=== PATIENT | male | born 1960 | race Caucasian/White ===

== ENCOUNTER 2016-09-05 11:25 | Inpatient (IN) | payer OTHER ==
[2016-09-05] VITALS (12 sets, daily range): BP systolic 100–125; BP diastolic 76–87; PULSE 70–151; RESP 16–22; O2SAT 90–98
[~2016-09-05] VITALS: Ht 182.9 cm; Wt 104.7 kg
--- NOTE | 2016-09-05 11:33 | ED.REPORT ---
HPI-General Illness Date of Service Sep 05, 2016 ED Provider: Doc,Ed MD The patient is a 56 year old male who was brought to the emergency department by EMS from urgent care. When he went to urgent care he was found to be in atrial fibrillation with a rate in the 170s-180s. He was given 324 mg aspirin and 25 IVP Cardizem. The patient went to urgent care this morning for 1 month of increased shortness of breath and fluid retention. His symptoms have worsened since onset. His shortness of breath is exacerbated with exertion. At this point he is only able to walk about 50 feet which is abnormal. He has also noticed increased fatigue, generalized weakness, extremity swelling and redness , and abdominal redness. He does not take any medication regularly. He does not smoke tobacco and quit drinking alcohol 3 weeks ago after his symptoms began. He denies chest pain or itching. He denies history of eczema. He does mention history of a rash at one point several years ago that he was placed on antibiotics for. Nursing Notes Stated Complaint: SOB Chief Complaint: Dysrhythmia/Cardiac Nursing Notes Reviewed: Yes Allergies: Coded Allergies: No Known Allergies (Unverified , 09/05/16) General Time Seen by MD: 11:33 Chief Complaint Other (shortness of breath ) Hx Obtained From: Patient, EMS Arrived By: Ambulance Sudden in Onset?: No Onset Occurred: More than a week ago... (1 month) Symptom Duration: Since onset Severity: Current: No pain currently Severity: Maximum: No pain Recent Healthcare: No recent hospitalization, Recent doctor visit Similar Sx Previous: No Past Medical History Past Medical History Denies Past Surgical History None Family History Noncontributory Smoking History Never Smoker Social History He was drinking a fair amount of alcohol and quit about 3 weeks ago. Other Social History: Local resident Ambulatory Status Independent Review of Systems Full Review of Systems Constitutional: Reports: Fatigue, Weakness - generalized Respiratory: Reports: Dyspnea on exertion, Shortness of breath Cardiovascular: Reports: Dyspnea on exertion, Edema, Denies: Chest pain Musculoskeletal: Reports: Extremity swelling Skin: Reports Rash (to lower extremities and abdomen), Denies Itching Complete sys rev & neg: except as marked. Physical Exam Vital Signs Vital Signs Date Time Temp Pulse Resp B/P Pulse Ox O2 Delivery O2 Flow Rate FiO2 09/05/16 12:26 121 123/76 92 Nasal Cannula 2 09/05/16 12:04 123 20 103/82 91 Nasal Cannula 2 09/05/16 11:57 118 22 90 Room Air 09/05/16 11:54 122 20 122/87 92 Room Air 09/05/16 11:45 92 Room Air 09/05/16 11:28 36.5 151 22 125/79 94 Nasal Cannula 2 Initial VS: Reviewed ENT: Mucous membranes moist, Conjunctiva normal, No scleral icterus Abdomen / GI: Soft, Non-tender, No guarding, No rebound, No distention Lymphatic: No lymphadenopathy Extremities: Vascular intact, Neuro intact Neurologic: Alert, Oriented, Nonfocal Psychiatric: Mood/affect normal, Behavior normal, Normal thought content General/Constitutional: Awake, Alert Anasarca up to mid abdomen Head / Eyes: Atraumatic, Normocephalic, PERRL, EOMI, No scleral icterus, Conjunctiva NL Neck: Supple, Full range of motion Neck Vascular: Positive: JVD moderate Respiratory / Chest: No respiratory distress Diminished Breath Sounds: Positive: Decreased L (in the lung base) Cardiovascular: Regular rhythm, Heart sounds NL, No murmurs, No rubs, Cap refill not delayed Heart Rate / Rhythm: Positive: Tachycardia Skin: Warm, Dry Color / Condition: Negative: Jaundice present Rash / Lesion Notes: Excoriated rash to the anterior shins bilaterally and the anterior lower abdomen. There is no warmth, tenderness, induration or fluctuance. It looks more consistent with a contact dermatitis. Interpretation & Diagnostics Lab Results Interpretation Result Diagram: 09/05/16 1148 09/05/16 1148 Test 09/05/16 11:45 09/05/16 11:48 Prothrombin Time 15.8sec (8.1-12.5) Prothromb Time International Ratio 1.47ratio Activated Partial Thromboplast Time 28.7sec (22.8-33.0) Pro-B-Type Natriuretic Peptide 6706pg/mL (0-210) White Blood Count 6.5th/mm3 (3.8-10.1) Red Blood Count 5.81mil/mm3 (4.40-5.80) Hemoglobin 16.9g/dL (13.8-17.2) Hematocrit 50.7% (41.0-50.0) Mean Corpuscular Volume 87.3fL (81-100) Mean Corpuscular Hemoglobin 29.1pg (27.0-35.0) Mean Corpuscular Hemoglobin Concent 33.3% (32.0-37.0) Red Cell Distribution Width 13.4% (12.3-15.4) Platelet Count 260bil/L (150-400) Neutrophils (%) (Auto) 50.3% (40-74) Lymphocytes (%) (Auto) 30.2% (14-46) Monocytes (%) (Auto) 13.1% (4-12) Eosinophils (%) (Auto) 5.9% (0-5) Basophils (%) (Auto) 0.3% (0-3) Sodium Level 132mEq/L (134-144) Potassium Level 4.4mEq/L (3.5-5.2) Chloride Level 95mEq/L (97-108) Carbon Dioxide Level 16mmol/L (18-29) Blood Urea Nitrogen 23mg/dL (6-24) Creatinine 1.19mg/dL (0.76-1.27) Estimat Glomerular Filtration Rate 67mL/min (>59) Glucose Level 136mg/dL (60-99) Calcium Level 9.5mg/dL (8.5-10.1) Magnesium Level 1.6mg/dL (1.6-2.6) Total Bilirubin 2.3mg/dL (0.0-1.2) Aspartate Amino Transf (AST/SGOT) 26U/L (0-50) Alanine Aminotransferase (ALT/SGPT) 23U/L (0-44) Alkaline Phosphatase 96U/L (25-150) Troponin T 0.010ug/L (0.0-0.011) Total Protein 7.3g/dL (6.4-8.4) Albumin 3.8g/dL (3.4-5.0) ECG Interpretation ECG Interpretation: Atrial fibrillation with RVR No acute ischemic changes Time: 11:38 Interpreted by: ED physician X-Ray Chest Interpretation Chest Xray Interpretation: IMPRESSION: Left basilar atelectasis versus pneumonia with small left pleural effusion. Continued plain film surveillance is recommended to ensure resolution, and to exclude underlying or central malignancy. Dictated by: Fariha Wade M.D. on 09/05/2016 at 11:50 Interpretation / Wet Read by: Interpret - Radiologist Re-Eval/Medical Decision Med Decision/Clinical Course A. fib with RVR and likely new onset congestive heart failure with anasarca. Question if there is either liver congestion causing elevated bilirubin or alcoholic cirrhosis causing elevated bilirubin and mild elevation in INR. Patient has no infectious symptoms, will be placed on heparin and a Cardizem drip after receiving 2 IV boluses of Cardizem. Also patient is given 40 of IV Lasix. Source of Hx: Old records, EMS Time of Eval: 11:44 Re-Evaluation/Progress Note: Discussed plan with the patient for probable admission. Time of Eval: 11:52 Re-Evaluation/Progress Note: Rechecked the patient. Time of Eval: 12:05 Re-Evaluation/Progress Note: Rechecked the patient. He denies any URI symptoms. Consultation : Referral / Consult Name: Refugio Cueto MD Consulted With: Hospitalist Requested Call at: 12:18 Call Returned at: 12:51 Strategy Specialist: Will see patient, Agrees with eval, Agrees with plan, Accepts admit Counseled Regarding: Diagnosis, Lab results, Need for admission Discharge & Departure Primary Impression: CHF (congestive heart failure) Congestive heart failure type: unspecified congestive heart failure type Congestive heart failure chronicity: unspecified congestive heart failure chronicity Qualified Code: I50.9 - Heart failure, unspecified Additional Impressions: Atrial fibrillation with rapid ventricular response Anasarca Hypoxia Disposition: ADMITTED TO HOSPITAL Discharge Condition All VS Reviewed: Yes Condition: Stable Crit Care Except Billable Proc Time Spent: 75-104 minutes Services Performed: Patient management by me, Time spent at bedside, Reviewing test results Critical Care Notes: See MDM, cardizem and heparin Gtt Scribe Attestation Portions of this note were transcribed by Chanell Romano. I, Dr. Wilkes personally performed the history, physical exam and medical decision-making; I reviewed and confirmed the accuracy of the information in the transcribed note. Signed by: Rufino Alexander, 09/05/2016 and Sourav Ramírez DO Sep 05, 2016 11:33 Chanell Romano Sep 05, 2016 11:38
[2016-09-05] MEDS ORDERED: Diltiazem 5 mg/mL 5 mL Inj IVPUSH ONE ×2 (11:45→12:15)
--- NOTE | 2016-09-05 11:57 | DRSVH ---
PROCEDURE: X-RAY CHEST ONE VIEW, PORTABLE ([id number]) INDICATIONS: aifib/sob TECHNIQUE: One view of the chest was acquired. COMPARISON: None. FINDINGS: Surgical changes and devices: None. Lungs and pleura: No pneumothorax. Small left pleural effusion. Left basilar atelectasis versus pneu monia. Mediastinum: Mediastinal contours appear normal. Heart size is normal. Bones and chest wall: No suspicious bony lesions. Overlying soft tissues appear unremarkable. IMPRESSION: Left basilar atelectasis versus pneumonia with small left pleural effusion. Continued leticia in film surveillance is recommended to ensure resolution, and to exclude underlying or central malign tyrone. Dictated by: Fariha Wade M.D. on 09/05/2016 at 11:50 Approved by: Fariha Wade M.D. on 09/05/2016 at 11:50
[2016-09-05 12:06] LABS: BASOPHILS % (AUTO) 0.3 % (0-3); EOSINOPHILS % (AUTO) 5.9 % (0-5); MONOCYTES % (AUTO) 13.1 % (4-12); Mean Corpuscular Hemoglobin 29.1 pg (27.0-35.0); Mean Corpuscular Volume 87.3 fL (81-100); NEUTROPHILS % (AUTO) 50.3 % (40-74); Platelet Count 260 bil/L (150-400)
[2016-09-05] MEDS ORDERED: Heparin 5,000 Unit/mL Inj IVPUSH ONE (12:15)
[2016-09-05] MEDS ORDERED: Heparin 25K Unit/500mL 0.45 NS 25,000 UNIT in IV Premix 1 EACH IV ONE (12:15)
[2016-09-05 12:34] LABS: TROPONIN T 0.01 ug/L (0.0-0.011)
[2016-09-05] MEDS: Diltiazem Inj 125 MG in Dextrose 5% 100 ML IV SCH (12:39)
[2016-09-05 12:42] LABS: INR 1.47 ratio
[2016-09-05 12:56] LABS: Magnesium 1.6 mg/dL (1.6-2.6)
[2016-09-05] MEDS ORDERED: Furosemide 10 mg/mL 4 mL Inj IVPUSH ONE (13:05)
[2016-09-05] MEDS ORDERED: Ondansetron 2 mg/mL 2 mL Inj IVPUSH PRN (13:10)
[2016-09-05] MEDS ORDERED: Polyethylene Glycol (PEG) 17 Gm Powder PO PRN (13:10)
[2016-09-05] MEDS ORDERED: Senna-Docusate 8.6-50 mg Tablet PO PRN (13:10)
[2016-09-05] MEDS ORDERED: Alum-Mag Hydrox-Simeth 30 mL Suspension PO PRN (13:10)
--- NOTE | 2016-09-05 14:11 | PCM.HPMED ---
Subjective Date of Service Sep 05, 2016 Primary Provider: Admitting Physician: Refugio Cueto MD Primary Care Physician: Olman Attending Physician: Refugio Cueto MD Chief Complaint: Dyspnea on exertion and orthopnea. History of Present Illness: The patient is a 56 year old male who was brought to the emergency department by EMS from urgent care with atrial fibrillation with a rate in the 170s-180s, dyspnea with exertion orthopnea. He was given 324 mg aspirin and 25 IVP Cardizem. He has not seen a physician in 6 years and is on no medications to speak of. He reports recent weight gain over the last 4 weeks for 30 pounds with fluid retention in his abdomen and lower extremities. He also reports his symptoms of orthopnea, dyspnea on exertion, lower extremity swelling/pruritus began about 4-5 weeks ago. He quit smoking tobacco recently and quit drinking alcohol 3 weeks ago after his symptoms began. Patient expressed concerns regarding cost of medications upon discharge. Review of Systems: A comprehensive review of systems was conducted with the patient and found to be negative except as above in the History of Present Illness. Allergies Coded Allergies: No Known Allergies (Unverified , 09/05/16) Home Medications no known home meds PMH none. Surgical History none. Family History Mother of a heart valve "issue" Father still living at 97. 5 siblings with one dependent on home O2 and other past away in his 50's. Social History Hx Alcohol Use: Yes Hx Substance Use: No Hx Tobacco Use: Yes Smoking Status: Never Smoker Living Arrangement: Alone Exam Vital Signs Vital Sign - Last Date Time Temp Pulse Resp B/P Pulse Ox O2 Delivery O2 Flow Rate FiO2 09/05/16 13:11 117 21 121/80 92 Nasal Cannula 3 09/05/16 11:28 36.5 Exam General: No acute distress, well-developed, obese with anasarca, well-nourished , appropriately interactive and slightly aggravated. HEENT: Normocephalic, atraumatic. External ears without defect. Pupils equal, round, and reactive to light and accommodation. Anicteric sclerae, moist conjunctivae, and no lid lag. Oropharynx free of erythema and cobble stoning with moist mucosa. Neck: Supple with full range of motion. Marked jugular venous distension while sitting up straight. No bruits. No lymphadenopathy or thyromegaly. Cardiovascular: Tachycardic rate and irregular rhythm with no murmurs, rubs, or gallops appreciated Pulmonary: Clear to auscultation in the upper lobes with no crackles, wheezes, or rhonchi, but decreased airflow in lower lobes bilaterally with marked decrease in the left lower lobe. Increased respiratory effort with mild use of accessory muscles. Abdomen: Bowel tones present. Obese with distended abdomen, nontender, Anasarca up to the nipples. No hepatosplenomegaly or masses appreciated. Extremities: No clubbing, cyanosis, Venous stasis dermatitis in LE, with moderate pitting edema R>L, or lymphadenopathy appreciated. Skin: Normal temperature, turgor, and texture; no rash, ulcers, or subcutaneous nodules appreciated. Neurological: Cranial nerves grossly intact. Normal muscle strength, tone, and bulk. Reflexes, coordination, and sensory function within normal limits. No known gait impairment. Psychiatric: Normal mood and affect. Alert and oriented to person, place, and time. Lab and Diagnostics Result Diagram: 09/05/16 1148 09/05/16 1148 Assessment & Plan The patient is a 56 year old male who was brought to the emergency department by EMS from urgent care with atrial fibrillation with a rate in the 170s-180s, dyspnea with exertion orthopnea. He was given 324 mg aspirin and 25 IVP Cardizem. He has not seen a physician in 6 years and is on no medications to speak of. He reports recent weight gain over the last 4 weeks for 30 pounds with fluid retention in his abdomen and lower extremities. He also reports his symptoms of orthopnea, dyspnea on exertion, lower extremity swelling/pruritus began about 4-5 weeks ago. He quit smoking tobacco recently and quit drinking alcohol 3 weeks ago after his symptoms began. # acute Congestive heart failure, likley systolic,present on admission, Active. -probably tachycardia induced CMP due to hyperthyroidism,may need stress test to r/o ischemic - Anasarca, orthopnea, dyspnea on exertion. - ECHO ordered. - atenolol 25 mg po daily - Furosemide 40 mg IV daily. -daily weight,I/O - Will add ISHA inhibitor tmrw # Atrial fibrillation with RvR, present on admission. Active. - Tachycardic with high HR of 190, "no known history." 2nd to hyperthyroid. - EKG shows Afib. - Diltiazem ggt. -atenolol po 25/d,started methimazole 10 mg bid for hyperthyroid state - Heparin drip,plan to start po AC - ASA 81 started. - Lipid panel, HA1c pending. - Atorvastatin 20 mg HS. - TSH - 0.005, T4 3.12. # Hyperthyroid state due to possible hot thyroid nodule -denies any hyperthyroid symptom -- TSH - 0.005, T4 3.12. -consulted Endocrine Dr Garsia,will start methimazole 10 mg bid,continue atenolol -he will need thyroid uptake scan off methimazole outpatient ,Dr Harsh Nino will see him on Wednesday # Thyroid Nodule -mx as above # suspected alcoholic cirrhosis, present on admission, Active - Likely 2nd to Etoh. may as well be congestive hepatopathy from CHF - Abdominal US. - T.Bili elevated 2.3 - INR 1.47 - Ammonia ordered. # Anasarca, present on admission, active. - Likely 2nd to CHF and Cirrhosis. - Continue diuresis. # Obesity, present on admission. Active. - BMI 34.0 # Dyspnea on exertion and orthopnea, present on admission. Active. - Likely 2nd to CHF and cirrhosis, DDx: above, Pneumonia, ascites, PE, [place], PAH, Obesity Hypovent syndrome, - Continue supportive treatment and above. Acetaminophen for mild pain when necessary. Bowel regimen Senna and MiraLAX scheduled and PRN. Zofran when necessary for nausea and vomiting. SubQ heparin for now. SCDs in place. High-risk medications: Patient Status: Patient is admitted under inpatient status with expected length of stay greater than 2 midnights due to severity of presenting symptoms, risk of adverse event, and complexity of treatment plan. Pain Evaluation: Adequate Pain Control VTE Prophylaxis: Sub-Q Heparin (Unfractionated) Resuscitation Status: CPR: Attempt Resuscitation Time spent 55 minutes Attending Statement The patient was seen and examined together with on 09/04/2016 and I agree with the history, exam and plan as outlined in the note above. YUSUF GARDNER DO Sep 05, 2016 13:42 Refugio Cueto MD Sep 05, 2016 16:04
--- NOTE | 2016-09-05 16:31 | DRSVH ---
PROCEDURE: US ABDOMEN INDICATIONS: suspected cirhosis TECHNIQUE: Real-time scanning was performed of the abdominal and retroperitoneal organs, with image documentatio n. COMPARISON: None. FINDINGS: Liver length: 17.82 cm Gallbladder Wall Thickness: 1.50 mm CHD: 1.80 mm CBD: 4 mm Spleen length: 12.20 cm Right kidney length: 9.18 cm Left kidney length: 10.33 cm Aorta(Proximal): 2.98 cm Aorta(Mid): Not seen Aorta(Distal): Not seen RCIA: Not seen LCIA: Not seen Liver: Liver is normal in size and homogeneous in echotexture. Gallbladder: Within normal limits Biliary ducts: Intrahepatic bile ducts are non-dilated. Extrahepatic bile duct caliber is normal. Normal is 6-7 mm or less in diameter, or 10 mm or less post-cholecystectomy. Pancreas: Visualized portions of the pancreas are sonographically normal. Spleen: Spleen is normal in size and homogeneous in echotexture. Kidneys: Kidneys are normal in size and echotexture. No hydronephrosis or nephrolithiasis. No og d masses. Aorta: Visualized aorta is normal in caliber at less than 3 cm. Iliacs: Proximal common iliac arteries are normal in caliber at less than 2.5 cm. IVC: Intrahepatic inferior vena cava is patent. Miscellaneous: Bilateral upper quadrant free fluid. IMPRESSION: No acute process. Ascites. Dictated by: Fariha Wade M.D. on 09/05/2016 at 16:24 Approved by: Fariha Wade M.D. on 09/05/2016 at 16:25
[2016-09-05] MEDS ORDERED: Furosemide 10 mg/mL 2 mL Inj IVPUSH ONE (17:00)
--- NOTE | 2016-09-05 17:11 | NUR ---
Admit note Patient admitted to 2027 from [facility] ER via bed. Patient a/o x 4, denies pain or nausea but has sob with activity. patient up indep in room, steady gait. Tele A fib 110-130's. Cardizem gtt increased to 10 mg HR 90-110's. Heparin gtt started in ER. Ultrasound of neck and abd done this evening. Abd distended and lower abd with redness, warm to touch. Bilat LE swollen with dryness, redness and abrasions. Patient HNV, bladder scan done showed 156 ml, MD at bedside and aware. VSS. patient oriented to room by bacteriology teacher.
--- NOTE | 2016-09-05 17:41 | DRSVH ---
PROCEDURE: US THYROID SONOGRAM INDICATIONS: hyperthyroidism TECHNIQUE: Real-time scanning was performed of the thyroid gland, with image documentation. COMPARISON: None. FINDINGS: Right: Thyroid lobe measures 4.6 x 2.1 x 2.5 cm. no focal mass. Left: Thyroid lobe measures 4.8 x 1.5 x 2.1 cm. a hypoechoic nodule within the inferior left lobe i s present, measuring 5 mm x 4 mm. Isthmus: 2.4 mm thick. Lymph nodes: No regional lymphadenopathy. IMPRESSION: 5 mm diameter hypoechoic nodule within the inferior left thyroid. Otherwise negative thyr oid ultrasound. Dictated by: Fariha Wade M.D. on 09/05/2016 at 17:34 Approved by: Fariha Wade M.D. on 09/05/2016 at 17:35
[2016-09-05 19:26] LABS: APPEARANCE,URINE HAZY (CLEAR,HAZY); COLOR,URINE DARK YELLOW (YELLOW); OCCULT BLOOD,URINE TRACE (NEGATIVE)
[2016-09-05 19:27] LABS: UROBILINOGEN,URINE NORMAL (NORMAL)
[2016-09-05 19:52] LABS: ICTOTEST,URINE POSITIVE (Negative)
[2016-09-06] VITALS (10 sets, daily range): BP systolic 84–128; BP diastolic 59–88; PULSE 65–97; RESP 15–23; O2SAT 92–97
[2016-09-06] MEDS: Diltiazem Inj 125 MG in Dextrose 5% 100 ML IV SCH (01:45)
[2016-09-06] MEDS: Heparin 5,000 Unit/mL Inj SUBQ SCH ×2 (01:46→07:54)
[2016-09-06 03:09] LABS: BASOPHILS % (AUTO) 0.4 % (0-3); EOSINOPHILS % (AUTO) 4.4 % (0-5); MONOCYTES % (AUTO) 14.9 % (4-12); Mean Corpuscular Hemoglobin 29.4 pg (27.0-35.0); Mean Corpuscular Volume 87.1 fL (81-100); NEUTROPHILS % (AUTO) 47.7 % (40-74); Platelet Count 218 bil/L (150-400)
[2016-09-06 03:33] LABS: Magnesium 1.7 mg/dL (1.6-2.6)
--- NOTE | 2016-09-06 06:01 | NUR ---
Cardiac/Respiratory/BP Pt's diltiazem drip was at 15ml/hr and pt's SBP >90 for 2 hours. Pt's HR has been A-Fib [id number]. Due to pt's BP being 93/68 the diltiazem drip was turned back down to 10ml/hr. Will continue the drip at this rate. Pt c/o SOB and unable to get comfortable enough to sleep. Pt is currently in tripod position supporting self up on bedside table to help with breathing. Pt has not made urine tonight and had a total of 1115ml input for the shift. When pt got up to get onto the scale for a standing weight the pt had orthostatic hypotension and BP went from 108/73 to 84/65. Pt is now considered to be a SBA when ambulating in the room.
[2016-09-06] MEDS: cefTRIAXone Inj 1,000 MG in Dextrose 5% Minibag Plus 50 ML IV SCH (07:56)
[2016-09-06] MEDS ORDERED: Furosemide 10 mg/mL 4 mL Inj IVPUSH SCH (08:30)
--- NOTE | 2016-09-06 12:06 | DRSVH ---
[facility] [address] [place] [address] Echocardiogram Report Name: JILLIAN PUENTES Study Date: 09/06/2016 Height: 72 in Hospital Exam Location: [facility] Weight: 250 lb Gender: Female BSA: 2.3 m2 : 1960 Age: 56 yrs BP: 108/73 mmHg Reason For Study: Congestive Heart Failure History: ETOH use, smoking Ordering Physician: Performed By: Diana VARGASIST [facility] Interpretation Summary 1. Normal left ventricular size, wall thickness with globally reduced systolic function and an estimated EF of 20-25% 2. Moderately dilated right ventricle with moderately reduced systolic function. The estimated right atrial pressure is elevated. 3. At least moderate tricuspid regurgitation. Moderate mitral regurgitation. 4. Left pleural effusion There is no old study for comparison Procedure: A two-dimensional transthoracic echocardiogram with color flow and Doppler was performed. The study quality was technically adequate. There is no prior echocardiogram noted for this patient. A contrast injection of Definity was performed to improve assessment of LV function. The patient did well with the Definity. The patient was in atrial fibrillation with heart rates between 64-87 bpm during the exam. Left Ventricle: The left ventricle is normal in size. There is normal left ventricular wall thickness. There is no thrombus. The ejection fraction is estimated to be 20-25%. Diastolic function could not be accurately assessed due to atrial fibrillation. Right Ventricle: The right ventricle is moderately dilated. Right ventricular systolic function is moderately reduced. Atria: The left atrium is mildly dilated. The right atrium is moderate to severely dilated. With the images obtained, there is no color doppler evidence for an ASD. Mitral Valve: The mitral valve is normal in structure and function. There is moderate mitral regurgitation. Aortic Valve: The aortic valve is not well visualized. The aortic valve is trileaflet. The aortic valve opens well. No aortic regurgitation is present. Tricuspid Valve: The tricuspid valve leaflets are thin and pliable. There is moderate tricuspid regurgitation. The right ventricular systolic pressure is estimated at 27 mmHg assuming a right atrial pressure of 15 mm Hg. Pulmonic Valve: The pulmonic valve is not well visualized. Great Vessels: The aortic root is normal size. The ascending aorta is normal in size. The aortic arch could not be visualized. The IVC is dilated (diameter is greater than 2.1 cm) and it collapses less than 50% with a sniff. This suggests a high right atrial pressure of 15 mm Hg. Pericardium/ Pleura There is a small loculated pericardial effusion. There is a very large left-sided pleural effusion. MMode/2D Measurements & Calculations LVIDd: 5.6 cm RA long axis: 6.6 cm LVOT diam LVIDs: 4.8 cm LA A2 area: 28.1 cm FS: 15.6 % LA A4 area: 25.1 cm RA area: 29.5 cm Ao root diam EPSS: 2.7 cm LA length (vol): 6.3 cm RA vol: 111.7 ml IVSd: 1.0 cm LA vol: 95.4 ml RA : 47.7 ml/m2 Aortic Jxn LVPWd: 1.1 cm LA vol index asc Aorta Diam: 3.0 cm IVC diam: 2.8 cm EDV(MOD-sp2) LV ortiz. diameter/BSA LV sys. diameter/BSA RVD1 (basal) : 167.5 ml (cm/m^2): 2.4 (cm/m^2): 2.0 : 4.6 cm TAPSE: 1.2 cm Doppler Measurements & Calculations Ao V2 max: 94.3 cm/sec MV E max arie TR max arie MV dec time Ao max P.6 mmHg : 77.1 cm/sec : 172.9 cm/sec : 0.11 sec Ao mean P.0 mmHg TR max PG LVOT Max Arie MR ERO: 0.19 cm2 : 12.0 mmHg : 41.1 cm/sec PA V2 max : 39.0 cm/sec MICHEL(I,D): 1.3 cm PA mean PG sev ratio: 0.41 : 0.30 mmHg PA Accel Time Ao V2 mean: 66.2 cm/secLV V1 max PG MR flow rate PA V2 mean Ao V2 VTI: 17.1 cm : 25.6 cm/sec LV V1 VTI: 7.1 cm : 64.4 cm3/sec MICHEL(V,D): 1.4 cm2 MR PISA radius MICHEL indexed to BSA (cm^2/m^2): 0.57 Reading Physician:12:05 PM
--- NOTE | 2016-09-06 13:31 | DRSVH ---
PROCEDURE: CT ABDOMEN AND PELVIS WITHOUT CONTRAST ([id number]) INDICATIONS: 56-year-old male with acute renal failure and vomiting. TECHNIQUE: After the administration of oral contrast, 5 mm thick sections acquired from the diaphragms to the sy mphysis. 5 mm coronal and sagittal reformats were performed. For radiation dose reduction, the foll owing was used: automated exposure control, adjustment of mA and/or kV according to patient size. COMPARISON: [facility], US, US ABDOMEN, 09/05/2016, 15:30. FINDINGS: Image quality: Excellent. ABDOMEN: Lung bases: Moderate bilateral mobile pleural effusions are present, with bibasilar compressive atel ectasis. Heart size is normal. Solid organs: Liver is normal in size. Gallbladder wall thickness is normal. Pancreas is normal in size. There is mild splenomegaly, measuring 12.1 cm in craniocaudal dimensions. No adrenal nodules . Both kidneys are normal in size, without hydronephrosis or nephrolithiasis. Peritoneum and bowel: Bowel loops demonstrate normal wall thickness and caliber. There is small to moderate scattered abdominal and pelvic ascites. No free air. Nodes and vessels: No retroperitoneal or mesenteric adenopathy by size criteria. On axial image 41, solitary enlarged periportal lymph node measures 1.3 cm in short axis dimensions. There is moderate aortoiliac atherosclerosis, along with 3.4 x 3.1 cm infrarenal abdominal aortic aneurysm. Inferior vena cava is normal in morphology. Miscellaneous: No ventral hernias. PELVIS: Genitourinary: Bladder is collapsed at the time of scan. Prostate gland is normal in size. Miscellaneous: No inguinal hernias or adenopathy. Bones: No suspicious bony lesions. No vertebral body compression fractures. Large L3 vertebral bod y superior endplate Schmorl's node is present from disc degeneration. IMPRESSION: 1. Moderate bibasilar mobile pleural effusions, as well as small to moderate scattered abdominal and pelvic ascites, or of uncertain etiology. 2. Mild splenomegaly is of uncertain etiology. No liver imaging features to specifically suggest ci rrhosis. Solitary mildly enlarged periportal lymph node is a nonspecific finding of uncertain etiolo gy. 3. 3.4 x 3.1 cm infrarenal abdominal aortic aneurysm. Dictated by: Dhaval Patricia M.D. on 09/06/2016 at 13:20 Approved by: Dhaval Patricia M.D. on 09/06/2016 at 13:30
--- NOTE | 2016-09-06 14:04 | PCM.PNMED ---
Subjective Date of Service Sep 06, 2016 Subjective Patient had 2 episodes of vomiting. Denies abdominal pain. Afebrile. Afib rate controlled today. not diuresing well with Lasix 40 mg IV daily. On the 600 mL urine /12h, has VICENTE and acidosis. Exam Vital Signs Vital Sign - Last Date Time Temp Pulse Resp B/P Pulse Ox O2 Delivery O2 Flow Rate FiO2 09/06/16 12:33 36.9 65 18 87/59 97 Nasal Cannula 3.50 Intake and Output 09/05/16 09/05/16 09/06/16 Cumulative From/Thru 15:00 23:00 07:00 09/05/16 11:28 - 09/06/16 05:13 Intake Total 861 ml 1065 ml 1926 ml Output Total 210 ml 200 ml 410 ml Balance 651 ml 865 ml 1516 ml Intake Oral 745 ml 900 ml 1645 ml IV Total 116 ml 165 ml 281 ml Output Urine Total 210 ml 200 ml 410 ml # Voids 1 1 # Bowel Movements 0 0 0 Exam General: No acute distress, well-developed, obese with anasarca, well-nourished , appropriately interactive and slightly aggravated. HEENT: Normocephalic, atraumatic. External ears without defect. Pupils equal, round, and reactive to light and accommodation. Anicteric sclerae, moist conjunctivae, and no lid lag. Oropharynx free of erythema and cobble stoning with moist mucosa. Neck: Supple with full range of motion. Marked jugular venous distension while sitting up straight. No bruits. No lymphadenopathy or thyromegaly. Cardiovascular: Tachycardic rate and irregular rhythm with no murmurs, rubs, or gallops appreciated Pulmonary: Clear to auscultation in the upper lobes with no crackles, wheezes, or rhonchi, but decreased airflow in lower lobes bilaterally with marked decrease in the left lower lobe. Increased respiratory effort with mild use of accessory muscles. Abdomen: Bowel tones present. Obese with distended abdomen, nontender, Anasarca up to the nipples. No hepatosplenomegaly or masses appreciated. Extremities: No clubbing, cyanosis, Venous stasis dermatitis in LE, with moderate pitting edema R>L, or lymphadenopathy appreciated. Skin: Normal temperature, turgor, and texture; no rash, ulcers, or subcutaneous nodules appreciated. Neurological: Cranial nerves grossly intact. Normal muscle strength, tone, and bulk. Reflexes, coordination, and sensory function within normal limits. No known gait impairment. Psychiatric: Normal mood and affect. Alert and oriented to person, place, and time. IVs and Medications Medications Reviewed: Medications were reviewed in detail Lab and Diagnostics Result Diagram: 09/06/1629909/06/16299 X-Rays, CTs and MRIs PROCEDURE: CT ABDOMEN AND PELVIS WITHOUT CONTRAST ([id number]) IMPRESSION: 1. Moderate bibasilar mobile pleural effusions, as well as small to moderate scattered abdominal and pelvic ascites, or of uncertain etiology. 2. Mild splenomegaly is of uncertain etiology. No liver imaging features to specifically suggest cirrhosis. Solitary mildly enlarged periportal lymph node is a nonspecific finding of uncertain etiology. 3. 3.4 x 3.1 cm infrarenal abdominal aortic aneurysm. Dictated by: Dhaval Patricia M.D. on 09/06/2016 at 13:20 PROCEDURE: US THYROID SONOGRAM IMPRESSION: 5 mm diameter hypoechoic nodule within the inferior left thyroid. Otherwise negative thyroid ultrasound. Dictated by: Fariha Wade M.D. on 09/05/2016 at 17:34 Cardiac Echo Impressions Interpretation Summary 1. Normal left ventricular size, wall thickness with globally reduced systolic function and an estimated EF of 20-25% 2. Moderately dilated right ventricle with moderately reduced systolic function. The estimated right atrial pressure is elevated. 3. At least moderate tricuspid regurgitation. Moderate mitral regurgitation. 4. Left pleural effusion There is no old study for comparison Assessment & Plan The patient is a 56 year old male who was brought to the emergency department by EMS from urgent care with atrial fibrillation with a rate in the 170s-180s, dyspnea with exertion orthopnea. He was given 324 mg aspirin and 25 IVP Cardizem. He has not seen a physician in 6 years and is on no medications to speak of. He reports recent weight gain over the last 4 weeks for 30 pounds with fluid retention in his abdomen and lower extremities. He also reports his symptoms of orthopnea, dyspnea on exertion, lower extremity swelling/pruritus began about 4-5 weeks ago. He quit smoking tobacco recently and quit drinking alcohol 3 weeks ago after his symptoms began. # acute systolic Congestive heart failure,,present on admission, Active. 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 - ECHO Ef 20-25 with global hypokinesis - atenolol 25 mg po daily - Furosemide 40 mg IV daily. not diuresing well,unable to increase lasix due to VICENTE -daily weight,I/O - will hold off lisinopril given VICENTE,may restart in 1-2 days when Vicente improves # Atrial fibrillation with RvR, present on admission. Active. - Tachycardic with high HR of 190, "no known history." 2nd to hyperthyroid. - EKG shows Afib. - rate now controlled and Diltiazem ggt discontinued -atenolol po 25/d,started methimazole 10 mg bid for hyperthyroid state -continue Heparin drip,plan to start po AC if no plan for cardioversion or any other diagnostic procedure like cath planned -discussed with Dr Ladd to see if he will benefit from cardioversion to sinus if cardiomyopathy is tachycardia/A. fib induced. Not likely to be a candidate for cardioversion given hyperthyroid and recommends rate control - ASA 81 started. - Lipid panel, HA1c pending. - Atorvastatin 20 mg HS. - TSH - 0.005, T4 3.12. # VICENTE ,acute ,not poa -Likely due to cardiorenal than diuresis. He only received a dose of Lasix and is oliguric -consulted Dr Dupont to see if he will benefit from lasix drip instead of iv pushes -Ct abd negative for hydronephrosis # metabolic acidosis ,acute ,not poa -due to above -bicarb 14 # Hyperthyroid state due to possible hot thyroid nodule -denies any hyperthyroid symptom -- TSH - 0.005, T4 3.12. -consulted Endocrine Dr Garsia,will start methimazole 10 mg bid,continue atenolol -he will need thyroid uptake scan off methimazole outpatient ,Dr Harsh Nino will see him on Wednesday # Thyroid Nodule -mx as above # suspected alcoholic cirrhosis, present on admission, Active - Likely 2nd to Etoh. may as well be congestive hepatopathy from CHF - Abdominal CT as above - T.Bili elevated 2.3 - INR 1.47 - Ammonia elevated,lactulose daily prn # Anasarca, present on admission, active. - Likely 2nd to CHF and Cirrhosis. - Continue diuresis. # suspected UTI,poa -pyuria on UA,urine culture no growth,slightly elevated procalcitonin -will treat with ceftriaxone,started today 09/06 # Obesity, present on admission. Active. - BMI 34.0 # Dyspnea on exertion and orthopnea, present on admission. Active. - Likely 2nd to CHF and cirrhosis, - Continue supportive treatment and above. Acetaminophen for mild pain when necessary. Bowel regimen Senna and MiraLAX scheduled and PRN. Zofran when necessary for nausea and vomiting. SubQ heparin for now. SCDs in place. High-risk medications: Disposition: Discharge in 2-3 days after optimizing his CHF regimen and improvement of VICENTE patient has no PCP, he needs PCP given diagnosis of multiple new comorbidities.He is interested to follow up with [facility] residency clinic,Please set up appointment for him if possible VTE Prophylaxis: Sub-Q Heparin (Unfractionated) Resuscitation Status: CPR: Attempt Resuscitation Refugio Cueto MD Sep 06, 2016 14:04
[2016-09-06] MEDS: Lactulose 20 Gm/30 mL 30 mL Syrup TUBE SCH (14:33)
[2016-09-06] MEDS ORDERED: Heparin 5,000 Unit/mL Inj IVPUSH ONE (15:35)
[2016-09-06] MEDS ORDERED: 0.9% Sodium Chloride 500 ML ONE (15:37)
--- NOTE | 2016-09-06 16:03 | NUR ---
Social Work Note: Screen Note Data& Assessment: EMR reviewed. Patient is a 56 year old female admitted on 09/05/16 for CHF and AFIB with RVR. 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 Appointment will be scheduled for patient at residency clinic. Per EMR patient lives alone and is independent at baseline. Pt is currently SBA in her room. No discharge needs identified at this time. SW to continue to follow if any needs arise. Plan: Anticipated discharge home via POV when medically ready. Appointment will be scheduled for patient at residency clinic. No other discharge needs identified at this time. SW to continue to follow if any needs arise. Haley King LMSW, ACM
--- NOTE | 2016-09-06 17:26 | PCM.PROC ---
Procedure Note Date of Service: Sep 06, 2016 Pre Procedure Diagnosis: Ascites Post Procedure Diagnosis: Ascites Procedure: Paracentesis Provider and Director Employment: Provider: Dr. Barry Dumont Attending: Dr. Refugio Cueto Indication for Procedure: Ascites, intra-abdominal hypertension, VICENTE Procedure Details: A time-out was performed. The right side of the abdomen was prepped and draped in a sterile fashion using chlorhexidine scrub. 1% lidocaine was used to numb the skin, soft tissue and peritoneum. The paracentesis catheter was inserted and advanced with negative pressure until clear yellow colored fluid was aspirated. Approximately 60 mL of ascitic fluid was collected and sent for laboratory analysis. The catheter was then connected to the vaccutainer and 2.5 liters of additional ascitic fluid were drained. The catheter was removed and no leaking was noted. A bandaid was placed over the puncture wound. The patient tolerated the procedure well without any immediate complications. Estimated blood loss was 0 ml. Attending Statement supervised this procedure at bed side on 09/04/16 Barry Dumont Sep 06, 2016 17:25 Refugio Cueto MD Sep 07, 2016 09:11
[2016-09-06 17:43] LABS: BFWBC 185 /mm3
[2016-09-06] MEDS: Heparin 25K Unit/500mL 0.45 NS 25,000 UNIT in IV Premix 1 EACH IV SCH (17:56)
[2016-09-06] MEDS: Furosemide 10 mg/mL 10 mL Inj IVPUSH SCH (17:57)
[2016-09-06 18:04] LABS: MONOCYTES,BODY FLUID 31 %
[2016-09-06 18:05] LABS: OTHER CELLS,BODY FLUID 6
[2016-09-06 18:50] LABS: TROPONIN T < 0.010 ug/L (0.0-0.011)
[2016-09-06 19:00] LABS: Creatine Kinase 45 U/L (21-232); Magnesium 1.9 mg/dL (1.6-2.6); Phosphorus 6.8 mg/dL (2.5-4.9)
--- NOTE | 2016-09-06 19:15 | CONS ---
[address] [address] CONSULTATION REPORT PATIENT: JILLIAN PUENTES : 1960 MR#: [id number] ADMIT: 09/05/2016 JOB ID: [id number] DATE OF SERVICE: 09/06/2016 HISTORY: The patient is a very pleasant 56-year-old white male who was admitted to [facility] for congestive heart failure, new-onset atrial fibrillation, increasing abdominal girth and lower extremity edema. In the last 24 hours, he has had an increase in his BUN and creatinine and he has become oliguric. Renal consultation is being sought for further evaluation of his renal dysfunction. The patient states he has not been to a doctor in a number of years. Prior to this admission, he denies any prior history of any hypertension, diabetes, renal problems or hepatitis. He states that over Gino he had what he described as a flu-like illness which resulted in sore throat, nasal congestion, cough productive of mucoid sputum. This resolved after several weeks. Approximately 4-6 weeks ago he began to develop dyspnea with exertion which has worsened over the last several weeks, progressive lower extremity edema, increased abdominal girth, overall weight gain due to fluids but states that his upper body has lost muscle mass. In addition, he complains of some profound fatigue, orthopnea, paroxysmal nocturnal dyspnea, and diminished appetite. He denies any chest pain, palpitations, heat or cold intolerance, fever, chills, or hair change, skin change or arthralgias. He does state that he has had some pruritus and some skin changes to his distal bilateral lower extremity edema, and this is been intensely pruritic. He also states that on the inferior aspect of his increasing abdomen, he has had persistent pruritus and now has some mild cellulitis. On admission, he was found to be in atrial fibrillation with a rapid ventricular response. He was started on atenolol for rate control. Subsequent echocardiogram showed a significantly depressed ejection fraction of approximately 20% to 25% with right ventricular dilation and increased atrial pressure. There is also evidence of a left pleural effusion. Subsequent workup of this revealed the patient to be significantly hyperthyroid with a TSH of less than 0.005 and a free T4 elevated at 3.12. He was initially treated with IV furosemide with some improvement in his urine output but this has deteriorated over the last 24 hours. Reviewing his vital signs, his systolic blood pressure has ranged in the mid 80s to the low 100 range. I do not see that he has had any overt nephrotoxins, contrast studies, or nonsteroidal anti-inflammatory medication. He denies a history of any prior renal problems. There is no history of any prior prostate problems, difficulty with urination, hematuria, proteinuria, recurrent urinary tract infections, renal lithiasis, frequent use of nonsteroidals or hepatitis. He denies any history of rheumatoid arthritis or lupus. PAST MEDICAL HISTORY: Negative for any history of stroke, seizure, asthma, emphysema, tuberculosis, prior cardiac issues, hypertension, myocardial infarction, or congestive heart failure. He denies a history of any recent thyroid problems or recent contrast or iodine exposure. There is no evidence of any frequent nausea, vomiting, or diarrhea and no history of any malignancies. PAST SURGICAL HISTORY: Unremarkable. ALLERGIES: He is not allergic to any food or any medication. SOCIAL HISTORY: He states that he drinks approximately half a pint of alcohol a day but states that he quit several weeks ago due to illness. There is no history of any tobacco use and he works as a [employer]. FAMILY HISTORY: Unremarkable. REVIEW OF SYSTEMS: As detailed above. MEDICATIONS: At time of my evaluation, include: 1. Heparin. 2. Lactulose. 3. Furosemide. 4. Ceftriaxone. 5. Atorvastatin. 6. Atenolol. 7. Aspirin. PHYSICAL EXAMINATION: Revealed a well-developed, thin, 56-year-old, white male who was alert and oriented x3 with a protuberant abdomen. His blood pressure at time of my evaluation was 89/59 with a pulse rate of 65. HEENT examination was remarkable for some mild bilateral exophthalmos. He did not have any evidence of any lid lag and his sclerae were otherwise not pale. Neck is supple without adenopathy, thyromegaly or carotid bruits. He did have significant jugular venous distention at 90 degrees. Examination of his lungs showed some diminished breath sounds in both bases secondary to his abdominal fluid. Heart was irregularly irregular. I do not appreciate a Means-Addy scratch. Abdomen is significantly distended and semi-tense. There is diffuse erythema on the inferior quarter of the abdomen extending from the left lower quadrant to the right lower quadrant. There are no satellite lesions nor are there any specific pustules noted. Bowel sounds were diminished. His liver did appear to be enlarged to examination and there was significant fluid noted by shifting dullness. Extremities do not show any evidence of any cyanosis or edema. He had evidence of extensive moderate pitting edema involving the proximal and distal aspects of both lower extremities. He has some significant brawny induration involving the distal 1/2 to 1/3 of both lower extremities with evidence of excoriations from the patient scratching this area. Reflexes were diminished in part due to increased tissue edema. LABORATORY EXAMINATION: This morning, his sodium is 130, potassium 5.3, chloride of 95, bicarbonate of 14, BUN and creatinine were 29 and 1.7 respectively. His glucose is 108. Liver function studies showed a mildly elevated AST at 55 and albumin of 3.2. As noted above, his TSH is less than 0.005 and free T4 is 3.12. His white count today was 6.9, hemoglobin 16.4, hematocrit 48.5, red cell indices and platelet count were normal and his differential was remarkable only for monocytosis with 15% monocytes. Urine obtained on admission showed dark hazy urine with a specific gravity of 1.025, there was trace protein, occult blood, bilirubin and leukocyte esterase. His red blood cell count in the urine was 0-2, white cells were 10-50, and there was moderate epithelial cells. There was also bacteria noted with hyaline casts. CT of the chest showed pleural effusions and abdominal fluid. IMPRESSION: 1. Acute kidney injury with acute tubular necrosis secondary to decompensated congestive heart failure from hyperthyroidism. In this scenario, he appears to have early stages of cardiorenal syndrome. In light of his antecedent upper respiratory tract infection in June, I would be concerned about the possibility of a postinfectious or collagen vascular etiology such as lupus or some other syndrome superimposing itself with the hyperthyroidism. 2. Anasarca from congestive heart failure. 3. Metabolic acidosis secondary to decompensated renal function. 4. Hyperkalemia secondary to acute kidney injury. RECOMMENDATION: 1. I would like to get a streptozyme test along with a sed rate, C4, C3, XAVIER and an anti-GBM titer. In addition, I would like to get urine-free eosinophils. 2. I am concerned about his significant abdominal fluid, I am concerned that he may be developing an early abdominal compartment syndrome. I would urge placement of a Liu catheter so that we can get an accurate intra-abdominal pressure and should this be beyond 13 or 15 mmHg, I would strongly recommend a large-volume paracentesis. 3. I would like to increase his loop diuretics to 80 mg of furosemide every 8 hours for several doses to see what kind of response we are getting. Once again, I would like to thank you for allowing me to participate in the care of this most pleasant but unfortunate patient. I will be following him closely with you.
--- NOTE | 2016-09-06 19:42 | NUR ---
[place]/CT/Paracentesis/Heparin gtt/Tele Patient a/o x 4, denies pain this shift. Patient oob indep in room steady gait. Patient had emesis x 2, Zofran given x 1. Patient down to CT scan for abd CT. Patient voided x 1 dark andres uop with odor. PVR 0 ml. Patient given Lactulose and had BM x 1. Neph MD in to consult this evening and [place] cath placed to monitor abd pressure and uop. Abd pressure 15, Dr Cueto notified and paracentesis done this evening. Puncture site has cont drainage, abd drsg removed and ostomy bag applied. Patient has no uop in [place] this shift. Cardizem gtt stopped this a.m. tele A fib 70-80's. Heparin gtt restarted for cardiac protocol.
[2016-09-06] MEDS: Heparin 5,000 Unit/mL Inj IVPUSH PRN (22:21)
[2016-09-07] VITALS (7 sets, daily range): BP systolic 90–118; BP diastolic 42–81; PULSE 56–119; RESP 14–20; O2SAT 91–95
[2016-09-07] MEDS ORDERED: 0.9% Sodium Chloride 100 ML ONE (00:02)
[2016-09-07] MEDS: Furosemide 10 mg/mL 10 mL Inj IVPUSH SCH ×2 (00:10→09:20)
--- NOTE | 2016-09-07 05:45 | NUR ---
Urine Output/BP Pt has had very little urine output (200cc) and it appears cloudy,dark red in the [place] bag. There is a large, dark clot in the [place] bag as well. Pt received 80mg IV Lasix and there is a NS bag hanging in the room that the Lasix can be hung with and it is labeled. Pt's BPs have been on the low side. Last BP 90/42 with a MAP of 58.
[2016-09-07] MEDS: Heparin 5,000 Unit/mL Inj IVPUSH PRN ×4 (05:59→23:48)
[2016-09-07] MEDS ORDERED: 0.9% Sodium Chloride 250 ML ONE (09:06)
[2016-09-07] MEDS: cefTRIAXone Inj 1,000 MG in Dextrose 5% Minibag Plus 50 ML IV SCH (09:48)
[2016-09-07] MEDS: Lactulose 20 Gm/30 mL 30 mL Syrup TUBE SCH (09:56)
--- NOTE | 2016-09-07 11:08 | NUR ---
Scheduled follow up hospital appointment for 09/14/16 check in at 415 PM check in for a 430 PM appointment with Updated [employer]
--- NOTE | 2016-09-07 11:14 | PCM.CHPMED ---
Subjective Date of Service: Sep 07, 2016 Provider requesting consult: Refugio Cueto MD Primary Physician: Admitting Physician: Refugio Cueto MD Primary Care Physician: Nopirene Attending Physician: Refugio Cueto MD Chief Complaint: Chief Complaint: The patient is seen at the request of Dr. Cueto for Endocrinology consultation and management. 56-year-old man presents with acute systolic heart failure, complicated by new onset atrial fibrillation with rapid ventricular response, likely caused by newly diagnosed hyperthyroidism. History of Present Illness: The patient reports 4-6 weeks of increasing abdominal girth, leg edema, and severe dyspnea on exertion. He states that his abdomen and legs have been progressively distended firm and uncomfortable since this time. His dyspnea is reproducible with mild activities (NYHA class III). There is no associated chest pain or palpitation. He has difficulty lying down due to increased abdominal girth, but otherwise does not have orthopnea. He has no prior history of cardiac or liver disease. He acknowledges drinking a fifth of spirits every 3 days. He has had no prior episodes of jaundice or diagnosis of cirrhosis. On admission he was noted to have elevated free T4 of 3.12 (upper limit of normal 1.77) with undetectable TSH. He has no prior history of thyroid disease. On thyroid review of systems he has had no insomnia or irritability. He denies episodes of diaphoresis or heat intolerance. His appetite is reduced. He has gained weight which he attributes to water accumulation. He has had no consistent eye discomfort or bulging. He notes no symptoms in his lower neck. No palpitations, tremor, diarrhea, skin or hair and nails changes. He is not aware of any prior head and neck irradiation. There is no family history of thyroid cancer. One brother takes a thyroid medication, but he is not sure which one or why. Another brother has rheumatoid arthritis with interstitial lung disease. Review of Systems: 10 systems were reviewed. Significant findings as per history of present illness. Incidental note is made of skin pruritus. Minor musculoskeletal aches. PMH Past Medical History # Alcohol use disorder # Cigarettes and he reports stopping 2 years ago. Hx Any Other Health Problems?: NoHx Diabetes: No Home Medications No home medications prior to admission. His currently on ceftriaxone Atenolol 25 mg by mouth daily Methimazole 10 mg by mouth twice a day Diltiazem drip Furosemide 80 mg every 8 hours IV Aspirin 81 mg daily Allergies: Coded Allergies: No Known Allergies (Unverified , 09/05/16) Family History Family History Father generally well at age 97 Mother of complications of valvular heart disease and surgery 6 brothers and one has rheumatoid or interstitial lung disease, one sister recently from stomach cancer 3 children alive and well no thyroid disease Social History Occupation: not working full-time.Hx Alcohol Use: YesAlcoholic Drinks Per Day : 5th and a half per week until 3 weeks agoHx Substance Use: NoHx Tobacco Use : Yes Smoking Status: Never Smoker Living Arrangement: Alone Exam Vital Signs Vital Sign - Last Date Time Temp Pulse Resp B/P Pulse Ox O2 Delivery O2 Flow Rate FiO2 09/07/16 09:57 107 09/07/16 08:58 36.3 14 104/74 92 Room Air 09/07/16 05:00 3.50 Intake and Output 09/06/16 09/06/16 09/07/16 Cumulative From/Thru 14:59 22:59 06:59 09/05/16 11:28 - 09/07/16 05:00 Intake Total 1081 ml 1159 ml 4166 ml Output Total 300 ml 300 ml 1010 ml Balance 781 ml 859 ml 3156 ml Intake Oral 1036 ml 900 ml 3581 ml IV Total 45 ml 259 ml 585 ml Output Urine Total 300 ml 200 ml 910 ml Stool Total 100 ml 100 ml Drainage Total 0 ml 0 ml # Voids 1 0 2 # Bowel Movements 1 0 1 General: Obese middle-aged man in no acute distress HEENT: sclerae anicteric, oral mucosa moist, no chemosis or injection, no proptosis Neck: no significant JVD, thyroid gland palpable, mildly enlarged (~30gm), irregular texture but no discrete nodules appreciated Chest: Dullness at bases bilaterally, no rales, no egophony Cardiac: S1S2, irregular, no murmur Abdomen: BS normal, tense, non-tender, difficult to appreciate flank dullness; mild with erythema of skin over lower abdomen Extremities: 2+ edema with erythema and excoriation Neuro: A&O, cranial nerves symmetric, motor strength 5/5, coordination normal, no tremor, reflexes are symmetrically bilaterally reduced, sensation intact to light touch in feet Lab and Diagnostics Result Diagram: 09/07/1643909/07/16 0440 X-Rays, CTs and MRIs PROCEDURE: US THYROID SONOGRAM FINDINGS: Right: Thyroid lobe measures 4.6 x 2.1 x 2.5 cm. no focal mass. Left: Thyroid lobe measures 4.8 x 1.5 x 2.1 cm. a hypoechoic nodule within the inferior left lobe is present, measuring 5 mm x 4 mm. Isthmus: 2.4 mm thick. Lymph nodes: No regional lymphadenopathy. IMPRESSION: 5 mm diameter hypoechoic nodule within the inferior left thyroid. Otherwise negative thyroid ultrasound. Dictated by: Fariha Wade M.D. on 09/05/2016 at 17:34 . 12-lead ECG (on admission): Atrial fibrillation rate 151, lateral T-wave inversions Assessment & Plan Assessment 56-year-old man with four-week history of acute systolic congestive heart failure due to atrial fibrillation with rapid ventricular response, likely due to significant hyperthyroidism. 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 Imaging reveals bilateral pleural effusions and mild to moderate ascites. Chest x-ray on admission raises concern for infiltrate versus atelectasis at the left base. He remains mildly tachycardic on diltiazem drip. He has had hyponatremia which has worsened to date. On admission, at time of atrial fibrillation with heart rate 150, his free T4 was moderately elevated approximately 1.5 times upper limit of control. He is otherwise asymptomatic from a thyroid perspective other than his atrial fibrillation and exertional dyspnea. He has been started on a beta jaquan and methimazole at appropriate initial doses. Thyroid ultrasound reveals a small nodule, which may be either a hyperfunctioning nodule, or an incidental finding in the second setting of autoimmune thyroid disease. His family history is moderately positive for autoimmune disease. Further workup will require rate scan and uptake, which must be performed after discontinuation of methimazole. In light of his severe comorbidities and cardiac instability, he should be stabilized on beta jaquan and methimazole and discharged on these medications. Further workup of the etiology may be pursued in 1-2 months after current cardiorenal issues are resolved. Recommendations: # Check thyroid-stimulating immunoglobulin; a free T4 may be checked approximately one week after methimazole treatment initiated # Increase atenolol as tolerated to control heart rate; just to taper off diltiazem and find optimum dose of beta jaquan prior to discharge # Continue methimazole 10 mg twice a day; this may be reduced to 10 mg daily after 1 week of twice a day dosing if A. fib is stable # Please initiate referral to endocrinology clinic; we will schedule this for 2 weeks after discharge Thank you for this interesting consult. I will follow as needed during the remainder of his inpatient stay. Please contact me if needed at [phone]. Problems: Pain Evaluation: Adequate Pain Control VTE Prophylaxis: Sub-Q Heparin (Unfractionated) Resuscitation Status: CPR: Attempt Resuscitation Time spent 80 minutes. Including personal review of radiology studies and EKG, and discussion of case with the hospitalist service. Patrick Nino MD Sep 07, 2016 11:14
[2016-09-07] MEDS: Diltiazem Inj 125 MG in Dextrose 5% 100 ML IV SCH (12:39)
--- NOTE | 2016-09-07 13:37 | PCM.PNMED ---
Subjective Date of Service Sep 07, 2016 Subjective Patient had abdominal paracentesis done yesterday with a 2.5 L fluid removal. Gross hematuria noted in the [place] catheter. Kidney function has been deteriorating, current serum creatinine is 3.03. Occult blood is positive. He stated that overall he is feeling better. Bedside bladder scan showed 0 residual. A repeat bladder pressure was about 3 mmHg. Exam Vital Signs Vital Sign - Last Date Time Temp Pulse Resp B/P Pulse Ox O2 Delivery O2 Flow Rate FiO2 09/07/16 12:11 36.5 102 20 114/74 91 Room Air 09/07/16 05:00 3.50 Intake and Output 09/06/16 09/06/16 09/07/16 Cumulative From/Thru 15:00 23:00 07:00 09/05/16 11:28 - 09/07/16 05:00 Intake Total 1081 ml 1159 ml 4166 ml Output Total 300 ml 300 ml 1010 ml Balance 781 ml 859 ml 3156 ml Intake Oral 1036 ml 900 ml 3581 ml IV Total 45 ml 259 ml 585 ml Output Urine Total 300 ml 200 ml 910 ml Stool Total 100 ml 100 ml Drainage Total 0 ml 0 ml # Voids 1 0 2 # Bowel Movements 1 0 1 Exam GENERAL: The patient in no apparent distress, and alert and oriented x3. VITAL SIGNS: as documented HEENT: Head is normocephalic and atraumatic. Extraocular muscles are intact. Pupils are equal, round, and reactive to light and accommodation. Nares appeared normal. Mouth is well hydrated and without lesions. Mucous membranes are moist. Posterior pharynx clear of any exudate or lesions. NECK: Supple, no elevation of JVD, No carotid bruits. No lymphadenopathy or thyromegaly. LUNGS: Decreased breath sounds at the bases no wheezing, no rhonchi no rales. HEART: Normal S1/S2, irregular rhythm, no murmurs, rubs or gallops. 2+ pules throughout. ABDOMEN: Soft, nontender, and mild distention. Positive bowel sounds. No hepatosplenomegaly was noted. EXTREMITIES: 2+ edema, with sacral swelling. Erythematous rash noted on the lower extremities. NEUROLOGIC: The patient is oriented to person, place and time. Strength and sensation are grossly intact. SKIN: Positive for excoriation lesion to extremities. Lab and Diagnostics Result Diagram: 09/07/1643909/07/16439 X-Rays, CTs and MRIs PROCEDURE: CT ABDOMEN AND PELVIS WITHOUT CONTRAST ([id number]) IMPRESSION: 1. Moderate bibasilar mobile pleural effusions, as well as small to moderate scattered abdominal and pelvic ascites, or of uncertain etiology. 2. Mild splenomegaly is of uncertain etiology. No liver imaging features to specifically suggest cirrhosis. Solitary mildly enlarged periportal lymph node is a nonspecific finding of uncertain etiology. 3. 3.4 x 3.1 cm infrarenal abdominal aortic aneurysm. Dictated by: Dhaval Patricia M.D. on 09/06/2016 at 13:20 PROCEDURE: US THYROID SONOGRAM IMPRESSION: 5 mm diameter hypoechoic nodule within the inferior left thyroid. Otherwise negative thyroid ultrasound. Dictated by: Fariha Wade M.D. on 09/05/2016 at 17:34 Cardiac Echo Impressions Interpretation Summary 1. Normal left ventricular size, wall thickness with globally reduced systolic function and an estimated EF of 20-25% 2. Moderately dilated right ventricle with moderately reduced systolic function. The estimated right atrial pressure is elevated. 3. At least moderate tricuspid regurgitation. Moderate mitral regurgitation. 4. Left pleural effusion There is no old study for comparison Assessment & Plan 1. Acute kidney injury - Unknown baseline creatinine. - His kidney function has been deteriorating with low urine output. - There is no evidence of obstructive uropathy. - The etiology of acute kidney injury likely due to low effective circulating volume from cardiorenal syndrome, suspected liver cirrhosis and third spacing, possible component of ischemic ATN. - Status post paracentesis the current bladder pressure is low. 2. Acute systolic heart failure - With underlying disease of alcohol abuse, newly diagnosed hyperparathyroidism , unknown onset atrial fibrillation. 3. Atrial fibrillation, unknown onset. 4. Hyperparathyroidism 5. Anion gap metabolic acidosis 6. Hyper volemic hyponatremia 7. Gross hematuria due to heparin, traumatic [place] catheter placement Plan: - We will switch Lasix put to the Lasix drip at 10 mg per hour. - Add metolazone 5 mg 1 today - May consider ultrafiltration if patient has no response with IV loop diuretics. - Vasculitis workup is pending. - Adjust medication per GFR, avoid nephrotoxin. VTE Prophylaxis: Sub-Q Heparin (Unfractionated) Resuscitation Status: CPR: Attempt Resuscitation Luis Guerra MD Sep 07, 2016 13:37
[2016-09-07] MEDS: Heparin 25K Unit/500mL 0.45 NS 25,000 UNIT in IV Premix 1 EACH IV SCH (16:38)
[2016-09-07] MEDS: Furosemide Inj 100 MG in 0.9% Sodium Chloride 90 ML IV SCH (16:47)
--- NOTE | 2016-09-07 19:17 | NUR ---
New diagnosis Pt. concerned today about his several new diagnosis. States he feels a little overwhelmed that this is all happening, especially since he feels "fine". I sat and talked with him for a bit, explaining that we are treating the issues that he has, and that all the specialists involved with his care will help to reach an optimal outcome and treatment for going home. He denies needing to talk to the intelligence officer. I encouraged him to ask frequent questions, so that we could help him understand everything.
--- NOTE | 2016-09-07 21:01 | PCM.PNMED ---
Subjective Date of Service Sep 07, 2016 Subjective Hospital Day 3 overnight: Pt oliguric with 200cc out overnight and it appears cloudy,dark red in the [place] bag. with a large, dark clot in the [place] bag as well. No acute events otherwise today: Patient denies palpitations or chest pain. He denies cough or shortness of breath. He states that he would like to be out tomorrow but was told that he would be discharged on Wednesday. The patient continues to have afib on tele. When discussing that the patient will likely need to remain hospitalized longer than the next two day the patient was accepting. Exam Vital Signs Vital Sign - Last Date Time Temp Pulse Resp B/P Pulse Ox O2 Delivery O2 Flow Rate FiO2 09/07/16 05:00 35.8 100 16 90/42 95 Nasal Cannula 3.50 Intake and Output 09/06/16 09/06/16 09/07/16 Cumulative From/Thru 15:00 23:00 07:00 09/05/16 11:28 - 09/07/16 05:00 Intake Total 1081 ml 1159 ml 4166 ml Output Total 300 ml 300 ml 1010 ml Balance 781 ml 859 ml 3156 ml Intake Oral 1036 ml 900 ml 3581 ml IV Total 45 ml 259 ml 585 ml Output Urine Total 300 ml 200 ml 910 ml Stool Total 100 ml 100 ml Drainage Total 0 ml 0 ml # Voids 1 0 2 # Bowel Movements 1 0 1 Exam General: No acute distress, well-developed, obese, well-nourished, appropriately interactive HEENT: Normocephalic, atraumatic. External ears without defect. Pupils equal, round, and reactive to light and accommodation. Anicteric sclerae, moist conjunctivae, and no lid lag. Oropharynx free of erythema and cobble stoning with moist mucosa. Neck: Supple with full range of motion. Marked jugular venous distension while sitting up straight. No bruits. No lymphadenopathy or thyromegaly. Cardiovascular: Tachycardic rate and irregular rhythm with no murmurs, rubs, or gallops appreciated Pulmonary: Clear to auscultation in the upper lobes with no crackles, wheezes, or rhonchi, but decreased airflow in lower lobes bilaterally with mild rales in the left lower lobe. Normal respiratory effort without accessory muscle use. Abdomen: Bowel tones present. Obese with distended abdomen, nontender. No hepatosplenomegaly or masses appreciated. no pitting edema noted Extremities: No clubbing, cyanosis, Venous stasis dermatitis in lower extremities bilaterally, with moderate pitting edema bilaterally in lower extremities up to thigh Skin: Normal temperature, turgor, and texture; no rash, ulcers, or subcutaneous nodules appreciated. Neurological: Cranial nerves grossly intact. Normal muscle strength, tone, and bulk. Reflexes, coordination, and sensory function within normal limits. No known gait impairment. Psychiatric: Normal mood and affect. Alert and oriented to person, place, and time. : [place] in place with dark urine in bag and clear urine in tubing Lab and Diagnostics Result Diagram: 09/07/16 04409/07/16 044 Microbiology all negative including stool, urine and abdominal paracentesis fluid X-Rays, CTs and MRIs PROCEDURE: CT ABDOMEN AND PELVIS WITHOUT CONTRAST ([id number]) IMPRESSION: 1. Moderate bibasilar mobile pleural effusions, as well as small to moderate scattered abdominal and pelvic ascites, or of uncertain etiology. 2. Mild splenomegaly is of uncertain etiology. No liver imaging features to specifically suggest cirrhosis. Solitary mildly enlarged periportal lymph node is a nonspecific finding of uncertain etiology. 3. 3.4 x 3.1 cm infrarenal abdominal aortic aneurysm. Dictated by: Dhaval Patricia M.D. on 09/06/2016 at 13:20 PROCEDURE: US THYROID SONOGRAM IMPRESSION: 5 mm diameter hypoechoic nodule within the inferior left thyroid. Otherwise negative thyroid ultrasound. Dictated by: Fariha Wade M.D. on 09/05/2016 at 17:34 Cardiac Echo Impressions Interpretation Summary 1. Normal left ventricular size, wall thickness with globally reduced systolic function and an estimated EF of 20-25% 2. Moderately dilated right ventricle with moderately reduced systolic function. The estimated right atrial pressure is elevated. 3. At least moderate tricuspid regurgitation. Moderate mitral regurgitation. 4. Left pleural effusion There is no old study for comparison Assessment & Plan The patient is a 56 year old male who was brought to the emergency department by EMS from urgent care with atrial fibrillation with a rate in the 170s-180s, dyspnea with exertion orthopnea. He was given 324 mg aspirin and 25 IVP Cardizem. He has not seen a physician in 6 years and is on no medications to speak of. He reports recent weight gain over the last 4 weeks for 30 pounds with fluid retention in his abdomen and lower extremities. He also reports his symptoms of orthopnea, dyspnea on exertion, lower extremity swelling/pruritus began about 4-5 weeks ago. He quit smoking tobacco recently and quit drinking alcohol 3 weeks ago after his symptoms began. 1 acute systolic Congestive heart failure, present on admission, Active. 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 - Anasarca, orthopnea, dyspnea on exertion all improving currently - ECHO Ef 20-25 with global hypokinesis - atenolol 25 mg po daily , will convert to metoprolol ER 09/08 - Furosemide 40 mg IV daily DC will start lasix central communications specialist at 10mg/hr per nephrology recs. - daily weight,I/O - repeat cxr to rule out pneumonia - will hold off lisinopril given VICENTE,may restart in 1-2 days when Vicente improves 2 Atrial fibrillation with RvR, present on admission. Active. - Tachycardic with high HR of 190, "no known history." 2nd to hyperthyroid. - EKG shows Afib. - rate now controlled and Diltiazem ggt discontinued per endocrine recs - atenolol po 25/d will start metoprolol ER given low normal blood pressure, started methimazole 10 mg bid for hyperthyroid state will convert to once daily prior to discharge - continue Heparin drip, plan to start likely Warfarin given monetary limitations given no plan for cardioversion or any other diagnostic procedure like cath planned - discussed with Dr Ladd to see if he will benefit from cardioversion to sinus if cardiomyopathy is tachycardia/A. fib induced. Not likely to be a candidate for cardioversion given hyperthyroid and recommends rate control - ASA 81 started. - Lipid panel, HA1c pending. - Atorvastatin 20 mg HS. - TSH - 0.005, T4 3.12. 3 acute kidney injury, not present on admission - Likely due to cardiorenal than diuresis. He only received a dose of Lasix and is oliguric - abdominal pressure are normal, so not likely due to abdominal compartment syndrome - nephrology following and increased lasix to drip form - Ct abd negative for hydronephrosis 4 metabolic acidosis ,acute ,not poa - due to above - bicarb improving to 19 - continue to monitor, consider bicitra without improvement in kidney function 5 Hyperthyroid state due to possible hot thyroid nodule, present on admission - thyroid US shows 5mm left lobe nodule - denies any hyperthyroid symptom - TSH - 0.005, T4 3.12. - consulted Endocrine Dr Garsia, will start methimazole 10 mg bid, continue atenolol - he will need thyroid uptake scan off methimazole outpatient - Endocrine Dr Harsh Nino recs include Methimazole 10mg BID and atenolol 25mg daily 6 mild liver failure, present on admission, Active - with noted Transaminitis, hyperbilirubinemia, INR elevated, Ammonia elevated, spleenomegally noted, - Likely 2nd to Etoh cirrhosis as well be congestive hepatopathy from CHF - Abdominal CT as above - lactulose daily prn - continue to monitor 7 possible suspected urinary tract infection, present on admission, acute -pyuria on UA,urine culture no growth,slightly elevated procalcitonin -ceftriaxone, started today 09/06 will treat till 09/13 8 Obesity, present on admission. Active. - BMI 34.0 9. abdominal aortic aneurysm, present on admission, presumed chronic - Monitor with abdominal US recommendations given at discharge 10. spleenomegally, present on admission, presumed chronic given pathology noted above - monitor Acetaminophen for mild pain when necessary. Bowel regimen Senna and MiraLAX scheduled and PRN. Zofran when necessary for nausea and vomiting. DVT prophylaxis Heparin Gtt. SCDs in place. High-risk medications: Disposition: Discharge in 5 days after optimizing his CHF regimen and improvement of VICENTE patient has no PCP, he needs PCP given diagnosis of multiple new comorbidities.He is interested to follow up with [facility] residency clinic, Please set up appointment for him if possible Pain Evaluation: Adequate Pain Control VTE Prophylaxis: Other (Heparin Gtt) Resuscitation Status: CPR: Attempt Resuscitation Attending Statement The patient was seen and examined together with Dr. Amezquita on 09/07/2016 and I agree with the history, exam and plan as outlined in the note above. . Prabhu Amezquita DO Sep 07, 2016 07:59 Shamir Lee MD Sep 08, 2016 07:50
[2016-09-08] VITALS (14 sets, daily range): BP systolic 91–126; BP diastolic 59–84; PULSE 69–146; RESP 16–20; O2SAT 91–97
[2016-09-08 03:08] LABS: Hepatitis A Antibody IgM Negative (Negative); Hepatitis B Core Antibody IgM Negative (Negative)
[2016-09-08] MEDS: Furosemide Inj 100 MG in 0.9% Sodium Chloride 90 ML IV SCH ×3 (03:39→23:59)
--- NOTE | 2016-09-08 04:36 | NUR ---
Anxiety/HR/Urine Output/Intra-Abdominal Pressure Pt has c/o anxiety r/t the hospital bill for this stay and the "negative picture that the doctors are painting." Pt was encouraged to ask questions and pt was informed about why procedures were being performed. Pt was educated as to what medications he is taking and why each time that they are given to reinforce the reason for each medication to better familiarize the pt with the medications. Pt did say that he felt some relief from his worrying about his medical diagnosis and that the information he was given made him feel more positive and hopeful. Pt's HR went into the 120s at one point and when pt was asked if he felt okay with the increased HR the pt said that he was just sitting up on the edge of the bed feeling restless and unable to sleep because he is worrying over his hospital bills. Pt has put out 3700cc of urine in the [place] catheter since the beginning of the shift and still has more urine already collecting in the bag at a steady rate while on the Lasix drip at 10ml/hr. Pt's urine has lightened in color with each emptying of the [place] catheter. We were unable to get an intra-abdominal pressure reading due to a lack of the proper equipment at this time.
[2016-09-08 05:40] LABS: BASOPHILS % (AUTO) 0.4 % (0-3); EOSINOPHILS % (AUTO) 9.3 % (0-5); Mean Corpuscular Hemoglobin 29.6 pg (27.0-35.0); Mean Corpuscular Volume 85.1 fL (81-100); NEUTROPHILS % (AUTO) 48.8 % (40-74); Platelet Count 193 bil/L (150-400)
[2016-09-08 06:07] LABS: INR 1.43 ratio
[2016-09-08 06:08] LABS: Magnesium 1.5 mg/dL (1.6-2.6); Phosphorus 4.8 mg/dL (2.5-4.9)
[2016-09-08] MEDS: Heparin 5,000 Unit/mL Inj IVPUSH PRN ×2 (06:37→14:30)
--- NOTE | 2016-09-08 08:17 | DRSVH ---
PROCEDURE: X-RAY CHEST ONE VIEW, PORTABLE ([id number]) INDICATIONS: possible pneumonia TECHNIQUE: One view of the chest was acquired. COMPARISON: [facility], CR, XR CHEST 1VW (PORTABLE), 09/05/2016, 11:45. FINDINGS: Surgical changes and devices: None. Lungs and pleura: Small bibasilar pleural effusions present, left greater than right and associated b ibasilar airspace opacities no significant change. Mediastinum: Mediastinal contours appear normal. Heart size is normal. Bones and chest wall: No suspicious bony lesions. Overlying soft tissues appear unremarkable. IMPRESSION: Small pleural effusions and basilar opacities consistent with compressive atelectasis ira mark pneumonia. Dictated by: Harsh READ Interpreted: Andria Rubi MD on 09/08/2016 at 8:16 Transcribed by: KEO on 09/08/2016 at 8:17 Approved by: Andria Rubi M.D. on 09/10/2016 at 16:06
[2016-09-08] MEDS ORDERED: MeTOProlol XL 25 mg ER24 Tablet PO SCH (08:30)
[2016-09-08] MEDS ORDERED: Magnesium Sulf 4 Gm/100 mL H2O 4 GM in IV Premix 1 EACH IV ONE (08:45)
[2016-09-08] MEDS: Lactulose 20 Gm/30 mL 30 mL Syrup TUBE SCH (09:30)
[2016-09-08] MEDS: cefTRIAXone Inj 1,000 MG in Dextrose 5% Minibag Plus 50 ML IV SCH (09:31)
[2016-09-08] MEDS: Heparin 25K Unit/500mL 0.45 NS 25,000 UNIT in IV Premix 1 EACH IV SCH (11:54)
--- NOTE | 2016-09-08 12:04 | PCM.PNMED ---
Subjective Date of Service Sep 08, 2016 Subjective Patient is responding well with IV diuretics. Overnight his urine output was 2330 mL, this morning was 4950 mL. Patient stated that he has felt better. He remains having lower extremity swelling but improved. Exam Vital Signs Vital Sign - Last Date Time Temp Pulse Resp B/P Pulse Ox O2 Delivery O2 Flow Rate FiO2 09/08/16 11:12 123 09/08/16 08:21 36.7 16 120/84 91 Room Air 09/07/16 05:00 3.50 Intake and Output 09/07/16 09/07/16 09/08/16 Cumulative From/Thru 15:00 23:00 07:00 09/05/16 11:28 - 09/08/16 05:40 Intake Total 824 ml 600 ml 5590 ml Output Total 2050 ml 4950 ml 8010 ml Balance -1226 ml -4350 ml -2420 ml Intake Oral 450 ml 600 ml 4631 ml IV Total 374 ml 959 ml Output Urine Total 2050 ml 4950 ml 7910 ml Stool Total 100 ml Drainage Total 0 ml # Voids 2 # Bowel Movements 3 0 4 Exam GENERAL: The patient in no apparent distress, and alert and oriented x3. VITAL SIGNS: as documented HEENT: Head is normocephalic and atraumatic. Extraocular muscles are intact. Pupils are equal, round, and reactive to light and accommodation. NECK: Supple, (+) elevation of JVD, No carotid bruits. No lymphadenopathy or thyromegaly. LUNGS: Decreased breath sounds at the bases no wheezing, no rhonchi no rales. HEART: Normal S1/S2, irregular rhythm, no murmurs, rubs or gallops. 2+ pules throughout. ABDOMEN: Soft, nontender, and mild distention. Positive bowel sounds. No hepatosplenomegaly was noted. EXTREMITIES: 2+ edema, with sacral swelling. Erythematous rash noted on the lower extremities. NEUROLOGIC: The patient is oriented to person, place and time. Strength and sensation are grossly intact. SKIN: Positive for excoriation lesion to extremities. Lab and Diagnostics Result Diagram: 09/08/1652409/08/16524 Microbiology all negative including stool, urine and abdominal paracentesis fluid X-Rays, CTs and MRIs PROCEDURE: CT ABDOMEN AND PELVIS WITHOUT CONTRAST ([id number]) IMPRESSION: 1. Moderate bibasilar mobile pleural effusions, as well as small to moderate scattered abdominal and pelvic ascites, or of uncertain etiology. 2. Mild splenomegaly is of uncertain etiology. No liver imaging features to specifically suggest cirrhosis. Solitary mildly enlarged periportal lymph node is a nonspecific finding of uncertain etiology. 3. 3.4 x 3.1 cm infrarenal abdominal aortic aneurysm. Dictated by: Dhaval Patricia M.D. on 09/06/2016 at 13:20 PROCEDURE: US THYROID SONOGRAM IMPRESSION: 5 mm diameter hypoechoic nodule within the inferior left thyroid. Otherwise negative thyroid ultrasound. Dictated by: Fariha Wade M.D. on 09/05/2016 at 17:34 Cardiac Echo Impressions Interpretation Summary 1. Normal left ventricular size, wall thickness with globally reduced systolic function and an estimated EF of 20-25% 2. Moderately dilated right ventricle with moderately reduced systolic function. The estimated right atrial pressure is elevated. 3. At least moderate tricuspid regurgitation. Moderate mitral regurgitation. 4. Left pleural effusion There is no old study for comparison Assessment & Plan 1. Acute kidney injury - Unknown baseline creatinine. - There is no evidence of obstructive uropathy. - The etiology of acute kidney injury likely due to low effective circulating volume from cardiorenal syndrome, suspected liver cirrhosis and third spacing, possible component of ischemic ATN. - Status post paracentesis the current bladder pressure is low. - Low level of complement 4, eosinophils positive in the urine, also suspected AIN due to??. - Vasculitis w/u sent. 2. Acute systolic heart failure - With underlying disease of alcohol abuse, newly diagnosed hyperparathyroidism , unknown onset atrial fibrillation. 3. Atrial fibrillation, unknown onset. 4. Hyperparathyroidism 5. Anion gap metabolic acidosis 6. Hyper volemic hyponatremia 7. Gross hematuria due to heparin, traumatic [place] catheter placement Plan: - Continue Lasix drip at 10 mg per hour. - Adjust medication per GFR, avoid nephrotoxin. - d/c [place] cath. - check RF and serum cryoglobulin. VTE Prophylaxis: Other (Heparin Gtt) Resuscitation Status: CPR: Attempt Resuscitation Luis Guerra MD Sep 08, 2016 12:04
[2016-09-08] MEDS: Diltiazem Inj 125 MG in Dextrose 5% 100 ML IV SCH (12:39)
--- NOTE | 2016-09-08 14:24 | PCM.CONPHA ---
Subjective Date of Service: Sep 08, 2016 Warfarin management Reason for Pharmacy Consult: Anticoagulation Management Assessment/Plan Assessment/Plan Indication: Afib Home Dose: n/a Anticoagulation Trends: -Sep 1.43 5MG Concurrent IV heparin GOAL INR: 2-3 Summary: Patient has mild liver failure with elevated INR baseline, will follow cautiously. 5mg today and reevaluate tomorrow. Pharmacy will continue to follow daily. Thank you for consulting pharmacy in the care of this patient. Shamir Heard Sep 08, 2016 14:24
[2016-09-08] MEDS ORDERED: MeTOProlol XL 25 mg ER24 Tablet PO ONE (16:00)
[2016-09-08] MEDS: diphenhydrAMINE-Zinc 2%-0.1% 30 Gm Cream TOPICAL PRN (17:12)
--- NOTE | 2016-09-08 18:51 | NUR ---
Tele/[place]/Activity Patient a/o x 4, denies pain, nausea or sob but c/o ear fullness and [place], ear eval done per MD. Patient oob amb indep in room and showered this shift. [place] cath discont per Md orders and patient voiding without difficulty. Lasix gtt and Heparin gtt cont. Tele A fib 100-150's, patient denies chest pain or sensation of rapid heart rate, MD notified and new meds ordered. Info on Warfarin given to patient prior to first dose. Will cont to monitor.
--- NOTE | 2016-09-08 19:57 | PCM.PNMED ---
Subjective Date of Service Sep 08, 2016 Subjective overnight: Patient continues to have anxiety about health and wellness nursing staff is able to redirect and calm. No acute events otherwise today: The patient states that he feels he is improving. He is happy to hear that his kidneys have responded to medications and therapy. He has some improvement in his left lower leg edema more than right. He developed an echo effect in his ears however he denies tinnitus when the room is quiet, he denies vertigo or other imbalance and he denies decreased hearing. Exam Vital Signs Vital Sign - Last Date Time Temp Pulse Resp B/P Pulse Ox O2 Delivery O2 Flow Rate FiO2 09/08/16 03:14 36.4 108 17 103/59 94 Room Air 09/07/16 05:00 3.50 Intake and Output 09/07/16 09/07/16 09/08/16 Cumulative From/Thru 15:00 23:00 07:00 09/05/16 11:28 - 09/08/16 05:40 Intake Total 824 ml 600 ml 5590 ml Output Total 2050 ml 4950 ml 8010 ml Balance -1226 ml -4350 ml -2420 ml Intake Oral 450 ml 600 ml 4631 ml IV Total 374 ml 959 ml Output Urine Total 2050 ml 4950 ml 7910 ml Stool Total 100 ml Drainage Total 0 ml # Voids 2 # Bowel Movements 3 0 4 Exam General: No acute distress, well-developed, obese, well-nourished, appropriately interactive, speaking in appropriate tone, able to stand without wobble HEENT: Normocephalic, atraumatic. External ears without defect. Canals normal tympanic membranes rollins translucent with proper cone of light no effusions noted. Pupils equal, round, and reactive to light and accommodation. Anicteric sclerae, moist conjunctivae, and no lid lag. Oropharynx free of erythema and cobble stoning with moist mucosa. Neck: Supple with full range of motion. Marked jugular venous distension while sitting up straight. No bruits. No lymphadenopathy or thyromegaly. Cardiovascular: regular rate and irregularly irregular rhythm with no murmurs, rubs, or gallops appreciated Pulmonary: Clear to auscultation in the upper lobes with no crackles, wheezes, or rhonchi, but decreased airflow in lower lobes bilaterally with mild rales in the left lower lobe. Normal respiratory effort without accessory muscle use. Abdomen: Bowel tones present. Obese with distended abdomen, nontender. No hepatosplenomegaly or masses appreciated. no pitting edema noted Extremities: No clubbing, cyanosis, Venous stasis dermatitis in lower extremities bilaterally, with moderate pitting edema bilaterally in lower extremities up to thigh R>L Skin: Normal temperature, and dry without ulcers, or subcutaneous nodules appreciated. Neurological: Cranial nerves grossly intact. Normal muscle strength, tone, and bulk. Reflexes, coordination, and sensory function within normal limits. No visualized gait impairment. Psychiatric: Normal mood and affect. Alert and oriented to person, place, and time. : Liu removed today Lab and Diagnostics Result Diagram: 09/08/1652409/08/16524 Microbiology all negative including stool, urine and abdominal paracentesis fluid X-Rays, CTs and MRIs PROCEDURE: CT ABDOMEN AND PELVIS WITHOUT CONTRAST ([id number]) IMPRESSION: 1. Moderate bibasilar mobile pleural effusions, as well as small to moderate scattered abdominal and pelvic ascites, or of uncertain etiology. 2. Mild splenomegaly is of uncertain etiology. No liver imaging features to specifically suggest cirrhosis. Solitary mildly enlarged periportal lymph node is a nonspecific finding of uncertain etiology. 3. 3.4 x 3.1 cm infrarenal abdominal aortic aneurysm. Dictated by: Dhaval Patricia M.D. on 09/06/2016 at 13:20 PROCEDURE: US THYROID SONOGRAM IMPRESSION: 5 mm diameter hypoechoic nodule within the inferior left thyroid. Otherwise negative thyroid ultrasound. Dictated by: Fariha Wade M.D. on 09/05/2016 at 17:34 Cardiac Echo Impressions Interpretation Summary 1. Normal left ventricular size, wall thickness with globally reduced systolic function and an estimated EF of 20-25% 2. Moderately dilated right ventricle with moderately reduced systolic function. The estimated right atrial pressure is elevated. 3. At least moderate tricuspid regurgitation. Moderate mitral regurgitation. 4. Left pleural effusion There is no old study for comparison Assessment & Plan The patient is a 56 year old male who was brought to the emergency department by EMS from urgent care with atrial fibrillation with a rate in the 170s-180s, dyspnea with exertion orthopnea. He was given 324 mg aspirin and 25 IVP Cardizem. He has not seen a physician in 6 years and is on no medications to speak of. He reports recent weight gain over the last 4 weeks for 30 pounds with fluid retention in his abdomen and lower extremities. He also reports his symptoms of orthopnea, dyspnea on exertion, lower extremity swelling/pruritus began about 4-5 weeks ago. He quit smoking tobacco recently and quit drinking alcohol 3 weeks ago after his symptoms began. 1 acute systolic Congestive heart failure, present on admission, Active. 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 - daily weight,I/O - repeat cxr to rule out pneumonia - will hold off lisinopril given VICENTE,may restart in 1-2 days when Vicente improves 2 Atrial fibrillation with RvR, present on admission. Active. - Tachycardic with high HR of 190, "no known history." 2nd to hyperthyroid. - EKG shows Afib. - rate now controlled and Diltiazem ggt discontinued per endocrine recs, converted to metoprolol ER 25mg 09/08, patient required a second dose of metoprolol ER 25mg for afib with RVR, with recommendation given to night team to consider restarting Dilt drip if patient becomes symptomatic or decompensates - started methimazole 10 mg bid for hyperthyroid state will convert to once daily prior to discharge - continue Heparin drip, and started Warfarin given monetary limitations given no plan for cardioversion or any other diagnostic procedure like cath planned - discussed with Dr Ladd to see if he will benefit from cardioversion to sinus if cardiomyopathy is tachycardia/A. fib induced. Not likely to be a candidate for cardioversion given hyperthyroid and recommends rate control - ASA 81 started. - Lipid panel, HA1c pending. - Atorvastatin 20 mg HS. - TSH - 0.005, T4 3.12. 3 acute kidney injury, not present on admission - Likely due to cardiorenal than diuresis. greatly improved on 09/08 - abdominal pressure are normal, so not likely due to abdominal compartment syndrome - nephrology following and increased lasix to drip form - Ct abd negative for hydronephrosis 4 metabolic acidosis ,acute ,not poa - due to above - bicarb improving to 19 - continue to monitor, consider bicitra without improvement in kidney function 5 Hyperthyroid state due to possible hot thyroid nodule, present on admission - thyroid US shows 5mm left lobe nodule - denies any hyperthyroid symptom - TSH - 0.005, T4 3.12. - consulted Endocrine Dr Garsia, will start methimazole 10 mg bid, continue atenolol - he will need thyroid uptake scan off methimazole outpatient - Endocrine Dr Harsh Nino recs include Methimazole 10mg BID and atenolol 25mg daily 6 mild liver failure, present on admission, Active - with noted Transaminitis, hyperbilirubinemia, INR elevated, Ammonia elevated, spleenomegally noted, - Likely 2nd to Etoh cirrhosis as well be congestive hepatopathy from CHF - Abdominal CT as above - lactulose daily prn - continue to monitor 7 possible suspected urinary tract infection, present on admission, acute -pyuria on UA,urine culture no growth,slightly elevated procalcitonin -ceftriaxone, started today 09/06 will treat till 09/13 8 Obesity, present on admission. Active. - BMI 34.0 9. abdominal aortic aneurysm, present on admission, presumed chronic - Monitor with abdominal US recommendations given at discharge 10. spleenomegally, present on admission, presumed chronic given pathology noted above - monitor Acetaminophen for mild pain when necessary. Bowel regimen Senna and MiraLAX scheduled and PRN. Zofran when necessary for nausea and vomiting. DVT prophylaxis Heparin Gtt. SCDs in place. High-risk medications: Disposition: Discharge in 5 days after optimizing his CHF regimen and improvement of VICENTE patient has no PCP, he needs PCP given diagnosis of multiple new comorbidities.He is interested to follow up with [facility] residency clinic, Please set up appointment for him if possible VTE Prophylaxis: Other (Heparin Gtt) Resuscitation Status: CPR: Attempt Resuscitation Attending Statement The patient was seen and examined together with Dr. Amezquita on 09/08/2016 and I agree with the history, exam and plan as outlined in the note above. . Prabhu Amezquita DO Sep 08, 2016 07:49 Shamir Lee MD Sep 10, 2016 17:47
[2016-09-08] MEDS: MeTOProlol 1 mg/mL 5 mL Inj IVPUSH SCH ×2 (21:42→21:56)
[2016-09-09] VITALS (7 sets, daily range): BP systolic 91–121; BP diastolic 59–77; PULSE 60–137; RESP 15–22; O2SAT 90–96
[2016-09-09] MEDS: Heparin 5,000 Unit/mL Inj IVPUSH PRN ×2 (02:07→10:21)
[2016-09-09 04:48] LABS: Mean Corpuscular Hemoglobin 28.8 pg (27.0-35.0); Mean Corpuscular Volume 84.2 fL (81-100)
[2016-09-09 04:54] LABS: INR 1.38 ratio
[2016-09-09 05:08] LABS: Magnesium 1.6 mg/dL (1.6-2.6); Phosphorus 4.4 mg/dL (2.5-4.9)
[2016-09-09] MEDS: Heparin 25K Unit/500mL 0.45 NS 25,000 UNIT in IV Premix 1 EACH IV SCH (06:28)
--- NOTE | 2016-09-09 07:25 | NUR ---
HR Tele Afib 110s-150s per report and MT reported HR up to 180s, this was when pt up to BR. Pt denied any symptoms, MD notified. Metoprolol IV given x2 per MD orders, HR down to 110s-120s at rest for the most part, not sustaining above 130, up to 150s with activity. MD aware, stated no further orders as long as pt asymptomatic. Pt denied symptoms and rate maintained as above.
[2016-09-09] MEDS: Lactulose 20 Gm/30 mL 30 mL Syrup TUBE SCH (07:49)
[2016-09-09] MEDS: diphenhydrAMINE-Zinc 2%-0.1% 30 Gm Cream TOPICAL PRN ×3 (07:54→21:14)
[2016-09-09] MEDS: cefTRIAXone Inj 1,000 MG in Dextrose 5% Minibag Plus 50 ML IV SCH (07:58)
[2016-09-09] MEDS ORDERED: Potassium Chloride 20 mEq SR Tablet PO ONE (08:25)
[2016-09-09] MEDS ORDERED: MeTOProlol XL 25 mg ER24 Tablet PO SCH (08:30)
--- NOTE | 2016-09-09 10:36 | PCM.CONPHA ---
Subjective Date of Service: Sep 09, 2016 Warfarin management Reason for Pharmacy Consult: Anticoagulation Management Objective Vital Signs Date Time Temp Pulse Resp B/P Pulse Ox O2 Delivery O2 Flow Rate FiO2 09/09/16 07:39 36.3 79 20 108/77 90 Room Air 09/09/16 04:01 36.3 128 16 91/65 95 Nasal Cannula 2.00 09/09/16 03:57 118 09/08/16 23:54 125 18 100/69 97 Nasal Cannula 2.00 09/08/16 22:37 111/75 09/08/16 22:22 94/71 09/08/16 22:15 91/62 09/08/16 22:07 109 98/61 09/08/16 21:54 119 106/76 09/08/16 21:39 146 111/70 95 Nasal Cannula 2.00 09/08/16 20:06 Supplement Oxygen 09/08/16 19:40 36.3 130 20 107/72 91 Room Air 09/08/16 16:20 36.4 69 18 116/74 95 Room Air 09/08/16 12:19 36.4 79 20 126/71 97 Room Air 09/08/16 11:12 123 Intake and Output 09/07/16 09/08/16 09/09/16 00:00 00:00 00:00 Intake Total 2146 ml 1983 ml 3038 ml Output Total 500 ml 2350 ml 07076 ml Balance 1646 ml -367 ml -7462 ml Weight (Kilograms): 111.000 Height (Feet): 6 Height (Inches): 0.00 Test 09/05/16 11:45 09/05/16 14:00 09/05/16 18:38 09/06/16 03:00 Pro-B-Type Natriuretic Peptide 6706pg/mL (0-210) Lactic Acid Level 2.0mmol/L (0.4-2.0) Ammonia 67ug/dL (18-53) Thyroid Stimulating Hormone (TSH) < 0.005uIU/mL (0.450-4.500) Free Thyroxine 3.12ng/dL (0.82-1.77) Urine Color Dark yellow (YELLOW) Urine Appearance Hazy (CLEAR,HAZY) Urine pH 5.0 (5.0-8.0) Urine Specific [place] 1.025 (1.003-1.035) Urine Protein Tracemg/dL (NEG,TRACE) Urine Glucose (UA) Negativemg/dL (NEGATIVE) Urine Ketones Negativemg/dL (NEGATIVE) Urine Occult Blood Trace (NEGATIVE) Urine Nitrite Negative (NEGATIVE) Urine Bilirubin Small (NEGATIVE) Urine Ictotest Positive (Negative) Urine Urobilinogen Normalmg/dL (NORMAL) Urine Leukocyte Esterase Small (NEGATIVE) Urine RBC 0-2/hpf (0-2) Urine WBC 11-50/hpf (0-5) Urine Epithelial Cells Moderate/hpf (NONE-MOD) Urine Crystals None seen (NONE SEEN) Urine Bacteria Moderate/hpf (NONE-FEW) Urine Hyaline Casts 5/20/lpf (NONE) Urine Granular Casts None seen (NONE SEEN) Urine Waxy Casts None seen (NONE SEEN) Urine Red Blood Cell Casts None seen (NONE SEEN) Urine White Blood Cell Casts None seen (NONE SEEN) Urine Mucus None seen (None Seen) Urine Trichomonas None seen (NONE SEEN) Urine Yeast None (NONE SEEN) Urinalysis Comment None Urine Culture Reflexed Indicated Triglycerides Level 104mg/dL (0-149) Cholesterol Level 103mg/dL (100-199) LDL Cholesterol, Calculated 69.200mg/dL (0-99) VLDL Cholesterol 20.800mg/dL HDL Cholesterol 13mg/dL (>39) Cholesterol/HDL Ratio 7.92 (0.0-4.4) Test 09/06/16 16:50 09/06/16 17:50 09/07/16 04:40 09/07/16 11:45 Body Fluid Source Peritoneal fluid Body Fluid Color Straw (Clear) Body Fluid Appearance Slightly hazy Body Fluid WBC 185/mm3 Body Fluid RBC 1390/mm3 Body Fluid Polynuclear WBCs 16% Body Fluid Lymphocytes 47% Body Fluid Monocytes 31% Body Fluid Eosinophils 0% Body Fluid Basophils 0% Lactate Dehydrogenase 261U/L (100-190) Total Creatine Kinase 45U/L (21-232) Troponin T < 0.010ug/L (0.0-0.011) Cortisol 15.6ug/dL (.) Erythrocyte Sedimentation Rate 1mm/hr (0-30) Hemoglobin A1c 5.8% (4.8-5.6) Osmolality 289 (275-300) Uric Acid 12.7mg/dL (2.6-7.2) Rheumatoid Factor 9.7IU/mL (0.0-13.9) Anti-Nuclear Antibody Screen Negative (Negative) Anti-Glomerular Basement Memb Ab 3units (0-20) Complement C3 109mg/dL (82-167) Complement C4 12mg/dL (14-44) Streptozyme 38.4IU/mL (0.0-200.0) Urine Osmolality 232mOs/kH2O (250-1200) Test 09/07/16 15:36 09/08/16 05:25 09/09/16 04:20 09/09/16 07:40 Hepatitis A IgM Antibody Negative (Negative) Hepatitis B Surface Antigen Negative (Negative) Hepatitis B Core IgM Antibody Negative (Negative) Hepatitis C Antibody <0.1s/co ratio (0.0-0.9) Hepatitis C Comment Comment (.) Neutrophils (%) (Auto) 48.8% (40-74) Lymphocytes (%) (Auto) 28.3% (14-46) Monocytes (%) (Auto) 13.0% (4-12) Eosinophils (%) (Auto) 9.3% (0-5) Basophils (%) (Auto) 0.4% (0-3) Total Bilirubin 2.0mg/dL (0.0-1.2) Aspartate Amino Transf (AST/SGOT) 38U/L (0-50) Alanine Aminotransferase (ALT/SGPT) 57U/L (0-44) Alkaline Phosphatase 85U/L (25-150) Total Protein 6.8g/dL (6.4-8.4) Albumin 3.5g/dL (3.4-5.0) White Blood Count 5.7th/mm3 (3.8-10.1) Red Blood Count 5.83mil/mm3 (4.40-5.80) Hemoglobin 16.8g/dL (13.8-17.2) Hematocrit 49.1% (41.0-50.0) Mean Corpuscular Volume 84.2fL (81-100) Mean Corpuscular Hemoglobin 28.8pg (27.0-35.0) Mean Corpuscular Hemoglobin Concent 34.2% (32.0-37.0) Red Cell Distribution Width 13.1% (12.3-15.4) Platelet Count 198bil/L (150-400) Prothrombin Time 14.9sec (8.1-12.5) Prothromb Time International Ratio 1.38ratio Sodium Level 135mEq/L (134-144) Potassium Level 3.7mEq/L (3.5-5.2) Chloride Level 91mEq/L (97-108) Carbon Dioxide Level 25mmol/L (18-29) Blood Urea Nitrogen 35mg/dL (6-24) Creatinine 1.33mg/dL (0.76-1.27) Estimat Glomerular Filtration Rate 59mL/min (>59) Glucose Level 102mg/dL (60-99) Calcium Level 9.4mg/dL (8.5-10.1) Phosphorus Level 4.4mg/dL (2.5-4.9) Magnesium Level 1.6mg/dL (1.6-2.6) Procalcitonin 0.21ng/mL (0.00-0.08) Activated Partial Thromboplast Time 47.6sec (22.8-33.0) Assessment/Plan Assessment/Plan Assessment: * Patient is needing warfarin management for atrial fibrillation. * Patient received the first dose of warfarin, which was 5 mg, on 09/08/16 after a baseline INR of 1.43. * Patient's INR goal range: 2-3 * Patient's INR on 09/09/16: 1.38 * Patient's INR dropped slightly, but patient has only received one dose of warfarin. The drop in INR was more likely related to the improvement in LFTs and less about the efficacy of warfarin. Plan: * Will give another dose of warfarin 5 mg on 09/09/16 and will reevaluate with the PT/INR on 09/10/16. * INR may likely drop again tomorrow if the LFTs continue to improve. * Will continue to follow. Sean Huizar Sep 09, 2016 10:36
[2016-09-09] MEDS: Diltiazem Inj 125 MG in Dextrose 5% 100 ML IV SCH (11:47)
--- NOTE | 2016-09-09 12:01 | PCM.PNNEPH ---
Subjective Date of Service Sep 09, 2016 Subjective continue to improve daily, intake 3038 output 82553 ml. remains in afib with RVR, metoprolol dosage adjusted. Exam Vital Signs Vital Sign - Last Date Time Temp Pulse Resp B/P Pulse Ox O2 Delivery O2 Flow Rate FiO2 09/09/16 11:24 125 09/09/16 07:39 36.3 20 108/77 90 Room Air 09/09/16 04:01 2.00 Intake and Output 09/08/16 09/08/16 09/09/16 Cumulative From/Thru 15:00 23:00 07:00 09/05/16 11:28 - 09/09/16 06:21 Intake Total 431 ml 2007 ml 800 ml 8828 ml Output Total 5550 ml 2150 ml 22426 ml Balance 431 ml -3543 ml -1350 ml -6882 ml Intake Oral 1440 ml 800 ml 6871 ml IV Total 431 ml 567 ml 1957 ml Output Urine Total 5550 ml 2150 ml 72989 ml Stool Total 100 ml Drainage Total 0 ml # Voids 2 # Bowel Movements 4 Exam GENERAL: The patient in no apparent distress, and alert and oriented x3. VITAL SIGNS: as documented HEENT: Head is normocephalic and atraumatic. Extraocular muscles are intact. Pupils are equal, round, and reactive to light and accommodation. NECK: Supple, (+) elevation of JVD, No carotid bruits. No lymphadenopathy or thyromegaly. LUNGS: Decreased breath sounds at the bases no wheezing, no rhonchi no rales. HEART: Normal S1/S2, irregular rhythm, no murmurs, rubs or gallops. 2+ pules throughout. ABDOMEN: Soft, nontender, and mild distention. Positive bowel sounds. No hepatosplenomegaly was noted. EXTREMITIES: 2+ edema, with sacral swelling. Erythematous rash noted on the lower extremities. NEUROLOGIC: The patient is oriented to person, place and time. Strength and sensation are grossly intact. SKIN: Positive for excoriation lesion to extremities. Lab and Diagnostics Result Diagram: 09/09/1641909/09/16419 Microbiology all negative including stool, urine and abdominal paracentesis fluid X-Rays, CTs and MRIs PROCEDURE: CT ABDOMEN AND PELVIS WITHOUT CONTRAST ([id number]) IMPRESSION: 1. Moderate bibasilar mobile pleural effusions, as well as small to moderate scattered abdominal and pelvic ascites, or of uncertain etiology. 2. Mild splenomegaly is of uncertain etiology. No liver imaging features to specifically suggest cirrhosis. Solitary mildly enlarged periportal lymph node is a nonspecific finding of uncertain etiology. 3. 3.4 x 3.1 cm infrarenal abdominal aortic aneurysm. Dictated by: Dhaval Patricia M.D. on 09/06/2016 at 13:20 PROCEDURE: US THYROID SONOGRAM IMPRESSION: 5 mm diameter hypoechoic nodule within the inferior left thyroid. Otherwise negative thyroid ultrasound. Dictated by: Fariha Wade M.D. on 09/05/2016 at 17:34 Cardiac Echo Impressions Interpretation Summary 1. Normal left ventricular size, wall thickness with globally reduced systolic function and an estimated EF of 20-25% 2. Moderately dilated right ventricle with moderately reduced systolic function. The estimated right atrial pressure is elevated. 3. At least moderate tricuspid regurgitation. Moderate mitral regurgitation. 4. Left pleural effusion There is no old study for comparison Plan Impression 1. Acute kidney injury - Unknown baseline creatinine. - There is no evidence of obstructive uropathy. - The etiology of acute kidney injury likely due to low effective circulating volume from cardiorenal syndrome. - Low level of complement 4, eosinophils positive in the urine, also suspected AIN due to??. - Vasculitis w/u sent. 2. Acute left and right sided heart failure, EF 20-25%. Echo - Normal left ventricular size, wall thickness with globally reduced systolic function and an estimated EF of 20-25% - Moderately dilated right ventricle with moderately reduced systolic function. The estimated right atrial pressure is elevated. - At least moderate tricuspid regurgitation. Moderate mitral regurgitation. - Left pleural effusion 3. Atrial fibrillation with RVR. 4. Hyperthyroidism with thyroid nodule. Plan: - d/c lasix gtt. - start IV lasix 40 mg q 12hr. - Adjust medication per GFR, avoid nephrotoxin. Luis Guerra MD Sep 09, 2016 12:01
[2016-09-09] MEDS: Furosemide 10 mg/mL 4 mL Inj IVPUSH SCH (12:10)
--- NOTE | 2016-09-09 14:40 | PATH ---
SURGICAL PATHOLOGY Attending Physician:See Additional MD CASE STATUS: Signed Out PATIENT NAME: Lawrence Manzano PID: [id number] : 1960 DATE COLLECTED:09/06/2016 00:00 SPECIMEN: Peritoneal Fluid CLINICAL HISTORY: Peritoneal Fluid ICD-10 code not given FINAL DIAGNOSIS: PERITONEAL FLUID: NEGATIVE FOR MALIGNANT CELLS. MESOTHELIAL CELLS AND LYMPHOCYTES ARE PRESENT. ICD10 CODE R18.8 GROSS DESCRIPTION: Received fresh on 09/08/2016 is approximately 5 cc of clear yellow fluid. Prepared are one cell block, one ThinPrep and one Cytospin slides. Vo ICD-9 CODES: CPT CODES: 1: 46194, 47280, 65573 Electronically Signed Out Nabil Rich MD [facility] Pathology [facility] [address], [place] [address] Technical component performed at [facility], [address] [place] [address] [address], [place], [address]
--- NOTE | 2016-09-09 18:58 | PCM.PNMED ---
Subjective Date of Service Sep 09, 2016 Subjective overnight: Telemetry showed Atrial fibrillation 110s-150s per report and MT reported HR up to 180s, this was when pt up to bathroom. Pt denied any symptoms. today: The patient states that he feels his leg swelling has continued to improve. He denies any ongoing issues with chest pain, palpitations, or shortness of breath. He remains nervous about the cost of this hospitalization and would like to be discharged as soon as possible. He is happy to hear that his kidneys are improving. Exam Vital Signs Vital Sign - Last Date Time Temp Pulse Resp B/P Pulse Ox O2 Delivery O2 Flow Rate FiO2 09/09/16 07:39 36.3 79 20 108/77 90 Room Air 09/09/16 04:01 2.00 Intake and Output 09/08/16 09/08/16 09/09/16 Cumulative From/Thru 15:00 23:00 07:00 09/05/16 11:28 - 09/09/16 06:21 Intake Total 431 ml 2007 ml 800 ml 8828 ml Output Total 5550 ml 2150 ml 42563 ml Balance 431 ml -3543 ml -1350 ml -6882 ml Intake Oral 1440 ml 800 ml 6871 ml IV Total 431 ml 567 ml 1957 ml Output Urine Total 5550 ml 2150 ml 58178 ml Stool Total 100 ml Drainage Total 0 ml # Voids 2 # Bowel Movements 4 Exam General: No acute distress, well-developed, obese, well-nourished, appropriately interactive, speaking in appropriate tone, able to stand without wobble HEENT: Normocephalic, atraumatic. External ears without defect. Pupils equal, round, and reactive to light and accommodation. Anicteric sclerae, moist conjunctivae, and no lid lag. Oropharynx free of erythema and cobble stoning with moist mucosa. Neck: Supple with full range of motion. improved jugular venous distension. No bruits. No lymphadenopathy or thyromegaly. Cardiovascular: tachycardia and irregularly irregular rhythm with no murmurs, rubs, or gallops appreciated Pulmonary: Clear to auscultation in the upper lobes with no crackles, wheezes, or rhonchi, with improved airflow in lower lobes bilaterally with mild rales in the left lower lobe. Normal respiratory effort without accessory muscle use. Abdomen: Bowel tones present. Obese with distended abdomen, nontender. No hepatosplenomegaly or masses appreciated. no pitting edema noted Extremities: No clubbing, cyanosis, Venous stasis dermatitis in lower extremities bilaterally, with moderate improving pitting edema bilaterally in lower extremities up to thigh R>L Skin: Normal temperature, and dry without ulcers, or subcutaneous nodules appreciated. Neurological: Cranial nerves grossly intact. Normal muscle strength, tone, and bulk. Reflexes, coordination, and sensory function within normal limits. No visualized gait impairment. Psychiatric: Normal mood and affect. Alert and oriented to person, place, and time. : Liu removed today Lab and Diagnostics Result Diagram: 09/09/1641909/09/16419 Microbiology all negative including stool, urine and abdominal paracentesis fluid X-Rays, CTs and MRIs PROCEDURE: CT ABDOMEN AND PELVIS WITHOUT CONTRAST ([id number]) IMPRESSION: 1. Moderate bibasilar mobile pleural effusions, as well as small to moderate scattered abdominal and pelvic ascites, or of uncertain etiology. 2. Mild splenomegaly is of uncertain etiology. No liver imaging features to specifically suggest cirrhosis. Solitary mildly enlarged periportal lymph node is a nonspecific finding of uncertain etiology. 3. 3.4 x 3.1 cm infrarenal abdominal aortic aneurysm. Dictated by: Dhaval Patricia M.D. on 09/06/2016 at 13:20 PROCEDURE: US THYROID SONOGRAM IMPRESSION: 5 mm diameter hypoechoic nodule within the inferior left thyroid. Otherwise negative thyroid ultrasound. Dictated by: Fariha Wade M.D. on 09/05/2016 at 17:34 Cardiac Echo Impressions Interpretation Summary 1. Normal left ventricular size, wall thickness with globally reduced systolic function and an estimated EF of 20-25% 2. Moderately dilated right ventricle with moderately reduced systolic function. The estimated right atrial pressure is elevated. 3. At least moderate tricuspid regurgitation. Moderate mitral regurgitation. 4. Left pleural effusion There is no old study for comparison Assessment & Plan The patient is a 56 year old male who was brought to the emergency department by EMS from urgent care with atrial fibrillation with a rate in the 170s-180s, dyspnea with exertion orthopnea. He was given 324 mg aspirin and 25 IVP Cardizem. He has not seen a physician in 6 years and is on no medications to speak of. He reports recent weight gain over the last 4 weeks for 30 pounds with fluid retention in his abdomen and lower extremities. He also reports his symptoms of orthopnea, dyspnea on exertion, lower extremity swelling/pruritus began about 4-5 weeks ago. He quit smoking tobacco recently and quit drinking alcohol 3 weeks ago after his symptoms began. 1 acute systolic Congestive heart failure, present on admission, Active. 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 - daily weight,I/O - repeat cxr to rule out pneumonia - will hold off lisinopril given VICENTE,may restart in 1-2 days when Vicente improves 2 Atrial fibrillation with RvR, present on admission. Active. - Tachycardic with high HR of 190, "no known history." 2nd to hyperthyroid. - EKG shows Afib. - rate now controlled and Diltiazem discontinued per endocrine recs, currently Metoprolol Tartrate 75mg BID - recommendation given to night team to consider restarting Dilt drip if patient becomes symptomatic or decompensates - started methimazole 10 mg bid for hyperthyroid state will convert to once daily prior to discharge - discontinued Heparin drip 09/09 given discussion with nephrology and pharmacy and started therapeutic Lovenox 110mg BID bridging to Warfarin - discussed with Dr Ladd to see if he will benefit from cardioversion to sinus if cardiomyopathy is tachycardia/A. fib induced. Not likely to be a candidate for cardioversion given hyperthyroid and recommends rate control - ASA 81 started. - Lipid panel, HA1c pending. - Atorvastatin 20 mg HS. - TSH - 0.005, T4 3.12. 3 acute kidney injury, not present on admission - Likely due to cardiorenal than diuresis. greatly improving 09/09 - abdominal pressure are normal, so not likely due to abdominal compartment syndrome - nephrology following discontinued lasix drip in favor of oral lasix dosing - Ct abd negative for hydronephrosis 4 metabolic acidosis, acute, not present on admission - due to above - bicarb improving 09/09 - continue to monitor, consider bicitra without improvement in kidney function 5 Hyperthyroid state due to possible hot thyroid nodule, present on admission - thyroid US shows 5mm left lobe nodule - denies any hyperthyroid symptom - TSH - 0.005, T4 3.12. - consulted Endocrine Dr Garsia, will start methimazole 10 mg bid and rate control with beta blockers instead of diltiazem - he will need thyroid uptake scan off methimazole outpatient - Endocrine Dr Harsh Nino recs include Methimazole 10mg BID 6 mild liver failure, present on admission, Active - with noted Transaminitis, hyperbilirubinemia, INR elevated, Ammonia elevated, splenomegaly noted, - Likely 2nd to Etoh cirrhosis as well be congestive hepatopathy from CHF - Abdominal CT as above - lactulose daily prn - continue to monitor 7 possible suspected urinary tract infection, present on admission, acute -pyuria on UA,urine culture no growth,slightly elevated procalcitonin -ceftriaxone, started today 09/06 will treat till 09/13 8 Obesity, present on admission. Active. - BMI 34.0 9. abdominal aortic aneurysm, present on admission, presumed chronic - Monitor with abdominal US recommendations given at discharge 10. spleenomegally, present on admission, presumed chronic given pathology noted above - monitor Acetaminophen for mild pain when necessary. Bowel regimen Senna and MiraLAX scheduled and PRN. Zofran when necessary for nausea and vomiting. DVT prophylaxis Heparin Gtt. SCDs in place. High-risk medications: Disposition: Discharge in 3 days after optimizing his CHF regimen and improvement of VICENTE patient has no PCP, he needs PCP given diagnosis of multiple new comorbidities. He is interested to follow up with [facility] with appointment scheduled on 09/14 Pain Evaluation: Adequate Pain Control GI Prophylaxis: Not indicated VTE Prophylaxis: Sub-Q Enoxaparin, Other (Heparin Gtt discontinued on 09/09) Resuscitation Status: CPR: Attempt Resuscitation Attending Statement The patient was seen and examined together with Dr. Amezquita on 09/09/2016 and I agree with the history, exam and plan as outlined in the note above. . Prabhu Amezquita DO Sep 09, 2016 07:56 Shamir Lee MD Sep 12, 2016 16:04
--- NOTE | 2016-09-09 19:02 | NUR ---
HR/Urine Pts. HR has been fluctuating between 120-140 and with activity 160, MD was made aware and made med. changes. Pts. urine switched from pale yellow to dark/andres (red wine) color this afternoon. Md was made aware of this as well. Pt. does not c/o pain or CP, SOB at this time.
[2016-09-10] VITALS (9 sets, daily range): BP systolic 95–108; BP diastolic 64–74; PULSE 64–134; RESP 15–20; O2SAT 92–97
[2016-09-10] MEDS: Furosemide 10 mg/mL 4 mL Inj IVPUSH SCH (00:13)
[2016-09-10 04:05] LABS: INR 1.37 ratio
[2016-09-10 07:05] LABS: Mean Corpuscular Hemoglobin 28.9 pg (27.0-35.0); Mean Corpuscular Volume 85.6 fL (81-100)
[2016-09-10] MEDS ORDERED: 0.9% Sodium Chloride 250 ML ONE (07:54)
--- NOTE | 2016-09-10 07:58 | NUR ---
Tele/Urine/Redness At start of shift Tele Afib 120s-140s and up to 160s w/ activity per report. Pt given HS metoprolol and HR was mostly 110s-120s the rest of the night, up to high 140s w/ activity. Pt reported no symptoms w/ this. Urine continues to be dark/andres/red tinged, consistent w/ report. Pt continues to c/o of itchiness in legs/abdomen and also on right upper arm, given benadryl cream at HS w/out further complaints.
[2016-09-10] MEDS: Lactulose 20 Gm/30 mL 30 mL Syrup TUBE SCH (08:06)
[2016-09-10] MEDS: cefTRIAXone Inj 1,000 MG in Dextrose 5% Minibag Plus 50 ML IV SCH (08:15)
[2016-09-10 09:37] LABS: APPEARANCE,URINE CLEAR (CLEAR,HAZY); COLOR,URINE YELLOW (YELLOW)
[2016-09-10 09:38] LABS: OCCULT BLOOD,URINE LARGE (NEGATIVE); UROBILINOGEN,URINE NORMAL (NORMAL)
--- NOTE | 2016-09-10 10:04 | PCM.PNMED ---
Subjective Date of Service Sep 10, 2016 Subjective Endocrinology consult follow-up note. Patient reports no symptoms of hyperthyroidism today. Other medical problems seem to be resolving. Rash on forearms seems to emerge since admission. Not Pruritic. Exam Vital Signs Vital Sign - Last Date Time Temp Pulse Resp B/P Pulse Ox O2 Delivery O2 Flow Rate FiO2 09/10/16 07:57 36.4 64 20 96/66 95 Room Air 09/09/16 04:01 2.00 Intake and Output 09/09/16 09/09/16 09/10/16 Cumulative From/Thru 15:00 23:00 07:00 09/05/16 11:28 - 09/10/16 06:20 Intake Total 468 ml 465 ml 800 ml 84643 ml Output Total 2100 ml 32122 ml Balance 468 ml 465 ml -1300 ml -7249 ml Intake Oral 800 ml 7671 ml IV Total 468 ml 465 ml 2890 ml Output Urine Total 2100 ml 64304 ml Stool Total 100 ml Drainage Total 0 ml # Voids 2 # Bowel Movements 4 Exam General: Mild obesity, in no acute distress HEENT: sclerae anicteric, oral mucosa moist Thyroid: Mild goiter left greater than right no clear focal nodule Chest: clear to auscultation Cardiac: S1S2, irregular, not tachycardic Abdomen: BS normal, non-tender Extremities: Papular rash bilateral volar forearm and hands, 1-3 mm with some crusting, nonvesicular, 1+ edema lower abdomen, 2+ edema legs with dermatitis, erythema and excoriation Neuro: A&O, cranial nerves symmetric, motor strength 5/5, no tremor Lab and Diagnostics Result Diagram: 09/10/16 0320 09/10/16 0638 Microbiology all negative including stool, urine and abdominal paracentesis fluid X-Rays, CTs and MRIs PROCEDURE: CT ABDOMEN AND PELVIS WITHOUT CONTRAST ([id number]) IMPRESSION: 1. Moderate bibasilar mobile pleural effusions, as well as small to moderate scattered abdominal and pelvic ascites, or of uncertain etiology. 2. Mild splenomegaly is of uncertain etiology. No liver imaging features to specifically suggest cirrhosis. Solitary mildly enlarged periportal lymph node is a nonspecific finding of uncertain etiology. 3. 3.4 x 3.1 cm infrarenal abdominal aortic aneurysm. Dictated by: Dhaval Patricia M.D. on 09/06/2016 at 13:20 PROCEDURE: US THYROID SONOGRAM IMPRESSION: 5 mm diameter hypoechoic nodule within the inferior left thyroid. Otherwise negative thyroid ultrasound. Dictated by: Fariha Wade M.D. on 09/05/2016 at 17:34 Cardiac Echo Impressions Interpretation Summary 1. Normal left ventricular size, wall thickness with globally reduced systolic function and an estimated EF of 20-25% 2. Moderately dilated right ventricle with moderately reduced systolic function. The estimated right atrial pressure is elevated. 3. At least moderate tricuspid regurgitation. Moderate mitral regurgitation. 4. Left pleural effusion There is no old study for comparison Assessment & Plan # Hyperthyroid state due to possible hot thyroid nodule, present on admission Assessment: - Rapid A. fib due to hyperthyroidism - denies any hyperthyroid symptom - TSH - 0.005, T4 3.12. - thyroid US shows 5mm left lobe nodule; thyroid-stimulating antibodies are pending - Unclear whether this is toxic nodular goiter versus Graves' disease - Papular rash over her forearms, with other nonspecific dermatitis on abdomen and legs - if he develops generalized rash, check eosinophils and worry about allergy to methimazole Plan: -Currently on methimazole 10 mg bid; okay to discharge on 10 mg daily; counseled regarding risks of agranulocytosis and jaundice - beta blockers instead of diltiazem; maximize dose to achieve good rate control - he will need nuc med thyroid uptake scan (off methimazole x 5d) as outpatient - Appointment made for follow-up in clinic on 10/14 GI Prophylaxis: Not indicated VTE Prophylaxis: Sub-Q Enoxaparin, Other (Heparin Gtt discontinued on 09/09) Resuscitation Status: CPR: Attempt Resuscitation Time spent 20 minutes Patrick Nino MD Sep 10, 2016 10:04
--- NOTE | 2016-09-10 11:46 | PCM.PNNEPH ---
Subjective Date of Service Sep 10, 2016 Subjective Persistent afib with RVR. Reported dark urine last night, more clear today. Exam Vital Signs Vital Sign - Last Date Time Temp Pulse Resp B/P Pulse Ox O2 Delivery O2 Flow Rate FiO2 09/10/16 07:57 36.4 64 20 96/66 95 Room Air 09/09/16 04:01 2.00 Intake and Output 09/09/16 09/09/16 09/10/16 Cumulative From/Thru 15:00 23:00 07:00 09/05/16 11:28 - 09/10/16 06:20 Intake Total 468 ml 465 ml 800 ml 89831 ml Output Total 2100 ml 70072 ml Balance 468 ml 465 ml -1300 ml -7249 ml Intake Oral 800 ml 7671 ml IV Total 468 ml 465 ml 2890 ml Output Urine Total 2100 ml 34002 ml Stool Total 100 ml Drainage Total 0 ml # Voids 2 # Bowel Movements 4 Exam GENERAL: The patient in no apparent distress, and alert and oriented x3. HEENT: Head is normocephalic and atraumatic. Extraocular muscles are intact. Pupils are equal, round, and reactive to light and accommodation. NECK: Supple, no JVD. LUNGS: CTA, B/L, no wheezing, no rhonchi. HEART: Normal S1/S2, irregular rhythm, no murmurs, rubs or gallops. 2+ pules throughout. ABDOMEN: Soft, nontender, and mild distention. Positive bowel sounds. No hepatosplenomegaly was noted. EXTREMITIES: 1+ edema, Erythematous rash noted on the lower extremities. NEUROLOGIC: The patient is oriented to person, place and time. Strength and sensation are grossly intact. SKIN: Positive for excoriation lesion to extremities. Lab and Diagnostics Result Diagram: 09/10/16 0320 09/10/16 0638 Microbiology all negative including stool, urine and abdominal paracentesis fluid X-Rays, CTs and MRIs PROCEDURE: CT ABDOMEN AND PELVIS WITHOUT CONTRAST ([id number]) IMPRESSION: 1. Moderate bibasilar mobile pleural effusions, as well as small to moderate scattered abdominal and pelvic ascites, or of uncertain etiology. 2. Mild splenomegaly is of uncertain etiology. No liver imaging features to specifically suggest cirrhosis. Solitary mildly enlarged periportal lymph node is a nonspecific finding of uncertain etiology. 3. 3.4 x 3.1 cm infrarenal abdominal aortic aneurysm. Dictated by: Dhaval Patricia M.D. on 09/06/2016 at 13:20 PROCEDURE: US THYROID SONOGRAM IMPRESSION: 5 mm diameter hypoechoic nodule within the inferior left thyroid. Otherwise negative thyroid ultrasound. Dictated by: Fariha Wade M.D. on 09/05/2016 at 17:34 Cardiac Echo Impressions Interpretation Summary 1. Normal left ventricular size, wall thickness with globally reduced systolic function and an estimated EF of 20-25% 2. Moderately dilated right ventricle with moderately reduced systolic function. The estimated right atrial pressure is elevated. 3. At least moderate tricuspid regurgitation. Moderate mitral regurgitation. 4. Left pleural effusion There is no old study for comparison Plan Impression 1. Acute kidney injury - Hypervolemia has almost subsided. - responding well with IV loop diuretics. 2. Acute left and right sided heart failure, EF 20-25%. Echo - Normal left ventricular size, wall thickness with globally reduced systolic function and an estimated EF of 20-25% - Moderately dilated right ventricle with moderately reduced systolic function. The estimated right atrial pressure is elevated. - At least moderate tricuspid regurgitation. Moderate mitral regurgitation. - Left pleural effusion 3. Atrial fibrillation with RVR. 4. Hyperthyroidism with thyroid nodule. Plan: d/c IV lasix. Start torsemide 40 mg BID and aldactone 25 mg daily. Luis Guerra MD Sep 10, 2016 11:46
[2016-09-10 14:10] LABS: Antiproteinase 3 (PR-3) Abs <3.5 U/mL (0.0-3.5); Perinuclear (P-ANCA) <1:20 titer (Neg:<1:20)
--- NOTE | 2016-09-10 15:49 | PCM.PNMED ---
Subjective Date of Service Sep 10, 2016 Subjective overnight: At start of shift Telemetry showed Atrial fibrillation in the 120s- 140s and up to 160s with activity per report. Pt given night dosing of metoprolol and heart rate was mostly 110s-120s the rest of the night, up to high 140s w/ activity. Patient reported no symptoms with increased heart rate. Urine continues to be dark/andres/red tinged per nursing reports. Patient continues to have a itchiness on arms, legs, abdomen, and back given Benadryl cream without further complaints. today: The patient states again that his initial urine this morning was clear but it subsequently turned dark again. He denies chest pain or shortness of breath. His legs continue to shrink in size. He has an itchy rash on most of his body now. He is ready to be discharged when staff feels he is ready to go home. Exam Vital Signs Vital Sign - Last Date Time Temp Pulse Resp B/P Pulse Ox O2 Delivery O2 Flow Rate FiO2 09/10/16 07:57 36.4 64 20 96/66 95 Room Air 09/09/16 04:01 2.00 Intake and Output 09/09/16 09/09/16 09/10/16 Cumulative From/Thru 15:00 23:00 07:00 09/05/16 11:28 - 09/10/16 06:20 Intake Total 468 ml 465 ml 800 ml 91039 ml Output Total 2100 ml 62508 ml Balance 468 ml 465 ml -1300 ml -7249 ml Intake Oral 800 ml 7671 ml IV Total 468 ml 465 ml 2890 ml Output Urine Total 2100 ml 23913 ml Stool Total 100 ml Drainage Total 0 ml # Voids 2 # Bowel Movements 4 Exam General: No acute distress, well-developed, obese, well-nourished, appropriately interactive, speaking in appropriate tone, able to stand without wobble HEENT: Normocephalic, atraumatic. External ears without defect. Pupils equal, round, and reactive to light and accommodation. Anicteric sclerae, moist conjunctivae, and no lid lag. Oropharynx free of erythema and cobble stoning with moist mucosa. Neck: Supple with full range of motion. improved jugular venous distension. No bruits. No lymphadenopathy or thyromegaly. Cardiovascular: tachycardia and irregularly irregular rhythm with no murmurs, rubs, or gallops appreciated Pulmonary: Clear to auscultation in the upper lobes with no crackles, wheezes, or rhonchi, with improved airflow in lower lobes bilaterally with mild rales in the lower lobes bilaterally. Normal respiratory effort without accessory muscle use. Abdomen: Bowel tones present. Obese with distended abdomen, nontender. No hepatosplenomegaly or masses appreciated. no pitting edema noted Extremities: No clubbing, cyanosis, Venous stasis dermatitis in lower extremities bilaterally, with moderate improving pitting edema bilaterally in lower extremities up to thigh R>L Skin: Normal temperature, and dry without ulcers, or subcutaneous nodules appreciated. Patient has a maculopapular slight punctate rash on his arms, legs abdomen and back. Neurological: Cranial nerves grossly intact. Normal muscle strength, tone, and bulk. Reflexes, coordination, and sensory function within normal limits. No visualized gait impairment. Psychiatric: Normal mood and affect. Alert and oriented to person, place, and time. : no Liu Lab and Diagnostics Result Diagram: 09/10/16 0320 09/10/16 0638 Microbiology all negative including stool, urine and abdominal paracentesis fluid X-Rays, CTs and MRIs PROCEDURE: CT ABDOMEN AND PELVIS WITHOUT CONTRAST ([id number]) IMPRESSION: 1. Moderate bibasilar mobile pleural effusions, as well as small to moderate scattered abdominal and pelvic ascites, or of uncertain etiology. 2. Mild splenomegaly is of uncertain etiology. No liver imaging features to specifically suggest cirrhosis. Solitary mildly enlarged periportal lymph node is a nonspecific finding of uncertain etiology. 3. 3.4 x 3.1 cm infrarenal abdominal aortic aneurysm. Dictated by: Dhaval Patricia M.D. on 09/06/2016 at 13:20 PROCEDURE: US THYROID SONOGRAM IMPRESSION: 5 mm diameter hypoechoic nodule within the inferior left thyroid. Otherwise negative thyroid ultrasound. Dictated by: Fariha Wade M.D. on 09/05/2016 at 17:34 Cardiac Echo Impressions Interpretation Summary 1. Normal left ventricular size, wall thickness with globally reduced systolic function and an estimated EF of 20-25% 2. Moderately dilated right ventricle with moderately reduced systolic function. The estimated right atrial pressure is elevated. 3. At least moderate tricuspid regurgitation. Moderate mitral regurgitation. 4. Left pleural effusion There is no old study for comparison Assessment & Plan The patient is a 56 year old male who was brought to the emergency department by EMS from urgent care with atrial fibrillation with a rate in the 170s-180s, dyspnea with exertion orthopnea. He was given 324 mg aspirin and 25 IVP Cardizem. He has not seen a physician in 6 years and is on no medications to speak of. He reports recent weight gain over the last 4 weeks for 30 pounds with fluid retention in his abdomen and lower extremities. He also reports his symptoms of orthopnea, dyspnea on exertion, lower extremity swelling/pruritus began about 4-5 weeks ago. He quit smoking tobacco recently and quit drinking alcohol 3 weeks ago after his symptoms began. 1 acute systolic Congestive heart failure, present on admission, Active. 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 Active. - Tachycardic with high HR of 190 at admission, "no known history." 2nd to hyperthyroid. - EKG shows Afib. - rate now controlled and Diltiazem discontinued per endocrine recs, currently Metoprolol Tartrate 75mg BID - started methimazole 10 mg bid for hyperthyroid state converted to PTU 100mg BID on 09/10 due to likely drug rash - discontinued Heparin drip 09/09 given discussion with nephrology and pharmacy and started therapeutic Lovenox 110mg BID bridging to Warfarin - ASA 81 started. - Atorvastatin 20 mg HS. - TSH - 0.005, T4 3.12. 3 acute kidney injury, not present on admission, improving - Likely due to cardiorenal than diuresis. greatly improving 09/09 - abdominal pressure are normal, so not likely due to abdominal compartment syndrome - nephrology following discontinued Lasic Gtt to Lasix IV to current Torsemide 40mg BID and spironolactone 25mg daily - Ct abd negative for hydronephrosis 4 Hyperthyroid state due to possible hot thyroid nodule, present on admission - thyroid US shows 5mm left lobe nodule - denies any hyperthyroid symptom - TSH - 0.005, T4 3.12. - Endocrine Dr Harsh Nino recs included methimazole 10 mg bid for hyperthyroid state to be converted to PTU 100mg BID on 09/10 due to likely drug rash - patient counseled regarding risks of agranulocytosis and jaundice by endocrinology and hospitalist - beta blockers instead of diltiazem; maximize dose to achieve good rate control - Patient will need nuclear iodine thyroid uptake scan (off methimazole x 5days ) as an outpatient after initial appointment with endocrinology - initial endocrinology appointment made for follow-up in clinic on 10/14/2016 5 mild liver failure, present on admission, Active - with noted Transaminitis, hyperbilirubinemia, INR elevated, Ammonia elevated, splenomegaly noted, - Likely 2nd to Etoh cirrhosis as well be congestive hepatopathy from CHF - Abdominal CT as above - lactulose daily prn - continue to monitor 6 possible suspected urinary tract infection, present on admission, acute -pyuria on UA,urine culture no growth,slightly elevated procalcitonin -ceftriaxone, started today 09/06 will treat till 09/10 7 Obesity, present on admission. Active. - BMI 34.0 8. abdominal aortic aneurysm, present on admission, presumed chronic - Monitor with abdominal US recommendations given at discharge 9. splenomegaly, present on admission, presumed chronic given pathology noted above - monitor 10 metabolic acidosis, acute, not present on admission, improving - likely due to kidney disease - bicarb improving - continue to monitor, consider bicitra without improvement in kidney function Acetaminophen for mild pain when necessary. Bowel regimen Senna and MiraLAX scheduled and PRN. Zofran when necessary for nausea and vomiting. DVT prophylaxis Lovenox. SCDs in place. Disposition: Discharge in 1 days after optimizing his CHF regimen and improvement of VICENTE patient has no PCP, he needs PCP given diagnosis of multiple new comorbidities. He is interested to follow up with [facility] residency clinic with appointment scheduled on 09/14 GI Prophylaxis: Not indicated VTE Prophylaxis: Sub-Q Enoxaparin, Other (Heparin Gtt discontinued on 09/09) Resuscitation Status: CPR: Attempt Resuscitation Attending Statement The patient was seen and examined together with Dr. Amezquita on 09/10/2016 and I agree with the history, exam and plan as outlined in the note above. . Prabhu Amezquita DO Sep 10, 2016 08:09 Shamir Lee MD Sep 12, 2016 16:05
--- NOTE | 2016-09-10 18:49 | NUR ---
HR/Rash and Itchiness/Urine color Pts. HR was in the 90-150s this morning and was given his scheduled metoprolol this morning of 75mg plus another 25mg before lunch and Pts. HR is now 120-130 per tele. Pt. c/o itchiness and MD was made aware. Pts. morning urine was pale yellow but before noon urine was a red wine color and MD was made aware of that also. Pt. c/o no CP, SOB and is eager to go home.
[2016-09-10] MEDS: PROPYLTHIOURACIL 50 MG PO SCH (23:17)
[2016-09-11] VITALS (8 sets, daily range): BP systolic 95–108; BP diastolic 59–75; PULSE 63–130; RESP 15–20; O2SAT 93–98
[2016-09-11 05:42] LABS: BASOPHILS % (AUTO) 0.2 % (0-3); MONOCYTES % (AUTO) 15.2 % (4-12); Mean Corpuscular Hemoglobin 28.9 pg (27.0-35.0); Mean Corpuscular Volume 84.7 fL (81-100); NEUTROPHILS % (AUTO) 38.5 % (40-74); Platelet Count 166 bil/L (150-400)
[2016-09-11 05:56] LABS: INR 1.76 ratio
[2016-09-11 06:30] LABS: Magnesium 1.4 mg/dL (1.6-2.6); Phosphorus 3.8 mg/dL (2.5-4.9)
--- NOTE | 2016-09-11 07:48 | NUR ---
Tele/UOP Pt given PO metoprolol at HS, BP stable, tele Afib 110s-120s for most of shift, pt reported no symptoms with this. UOP noted to be less dark and without red tinge to it. Pt also states rash has been less itchy.
[2016-09-11] MEDS: PROPYLTHIOURACIL 50 MG PO SCH ×2 (08:14→20:30)
[2016-09-11] MEDS ORDERED: Magnesium Sulf 4 Gm/100 mL H2O 4 GM in IV Premix 1 EACH IV ONE (08:15)
[2016-09-11] MEDS ORDERED: Potassium Chloride 20 mEq SR Tablet PO ONE (08:15)
[2016-09-11] MEDS ORDERED: 0.9% Sodium Chloride 250 ML ONE ×2 (09:36→09:38)
[2016-09-11 10:39] LABS: T4 (Thyroxine) 7.4 ug/dL (4.7-13.3)
--- NOTE | 2016-09-11 15:39 | PCM.PNNEPH ---
Subjective Date of Service Sep 11, 2016 Subjective He offered no new complaints, he is doing better. He has no CP/SOB. Methimazole d/c'd, PTU started for possible drug eruption. Exam Vital Signs Vital Sign - Last Date Time Temp Pulse Resp B/P Pulse Ox O2 Delivery O2 Flow Rate FiO2 09/11/16 12:59 36.7 89 17 95/67 98 Room Air 09/09/16 04:01 2.00 Intake and Output 09/10/16 09/10/16 09/11/16 Cumulative From/Thru 15:00 23:00 07:00 09/05/16 11:28 - 09/11/16 05:57 Intake Total 87 ml 1280 ml 800 ml 05970 ml Output Total 1300 ml 2025 ml 40416 ml Balance 87 ml -20 ml -1225 ml -8407 ml Intake Oral 1280 ml 800 ml 9751 ml IV Total 87 ml 2977 ml Output Urine Total 1300 ml 2025 ml 59742 ml Stool Total 100 ml Drainage Total 0 ml # Voids 2 # Bowel Movements 4 Exam GENERAL: The patient in no apparent distress, and alert and oriented x3. HEENT: Head is normocephalic and atraumatic. Extraocular muscles are intact. Pupils are equal, round, and reactive to light and accommodation. NECK: Supple, no JVD. LUNGS: CTA, B/L, no wheezing, no rhonchi. HEART: Normal S1/S2, irregular rhythm, no murmurs, rubs or gallops. ABDOMEN: Soft, nontender, and mild distention. Positive bowel sounds. No hepatosplenomegaly was noted. EXTREMITIES: 1+ edema, thick/chronic skin changes on LE. SKIN: Positive for excoriation lesion to lower extremities, maculopapular rash noted on both forearms. Lab and Diagnostics Result Diagram: 09/11/16 0506 09/11/16 0925 Microbiology all negative including stool, urine and abdominal paracentesis fluid X-Rays, CTs and MRIs PROCEDURE: CT ABDOMEN AND PELVIS WITHOUT CONTRAST ([id number]) IMPRESSION: 1. Moderate bibasilar mobile pleural effusions, as well as small to moderate scattered abdominal and pelvic ascites, or of uncertain etiology. 2. Mild splenomegaly is of uncertain etiology. No liver imaging features to specifically suggest cirrhosis. Solitary mildly enlarged periportal lymph node is a nonspecific finding of uncertain etiology. 3. 3.4 x 3.1 cm infrarenal abdominal aortic aneurysm. Dictated by: Dhaval Patricia M.D. on 09/06/2016 at 13:20 PROCEDURE: US THYROID SONOGRAM IMPRESSION: 5 mm diameter hypoechoic nodule within the inferior left thyroid. Otherwise negative thyroid ultrasound. Dictated by: Fariha Wade M.D. on 09/05/2016 at 17:34 Cardiac Echo Impressions Interpretation Summary 1. Normal left ventricular size, wall thickness with globally reduced systolic function and an estimated EF of 20-25% 2. Moderately dilated right ventricle with moderately reduced systolic function. The estimated right atrial pressure is elevated. 3. At least moderate tricuspid regurgitation. Moderate mitral regurgitation. 4. Left pleural effusion There is no old study for comparison Plan Impression 1. Acute kidney injury due to CRS. - now with intravascular volume depletion: hemoconcentration, hyperuricemia, metabolic alkalosis, hypercalcemia. - will decrease torsemide down to once a day. - hold aldactone for now. - replace Mg. 2. Acute left and right sided heart failure, EF 20-25%. with mod TR, mod MR 3. Atrial fibrillation with RVR. 4. Hyperthyroidism with thyroid nodule. 5. Suspected drug eruption from methimazole. Luis Guerra MD Sep 11, 2016 15:39
--- NOTE | 2016-09-11 18:40 | NUR ---
HR Pts. HR has been fluctuating throughout the day. In the morning Pts. HR was 113 per tele and after scheduled metoprolol Pts. HR was in the low 100s. Pt. now has a HR of 120-130 and is sustaining per tele. I cooked anca KNOX and will let NOC shift know. Pt. denies CP, SOB or any other type of pain at this time.
--- NOTE | 2016-09-11 20:07 | PCM.PNMED ---
Subjective Date of Service Sep 11, 2016 Subjective overnight: Patient did 75 mg prednisone at night with blood pressure stable however telemetry shows A. fib with the 100s to 120s overnight while patient is asymptomatic. Urine noted to be less dark without red tinge. Rash improving. No acute events otherwise noted Today: The patient states that his rash is no longer itching. He does believe that the rash is improving since yesterday. The patient still has no palpitations. He would like to get home as soon as possible. Exam Vital Signs Vital Sign - Last Date Time Temp Pulse Resp B/P Pulse Ox O2 Delivery O2 Flow Rate FiO2 09/11/16 08:10 Supplement Oxygen 09/11/16 08:08 36.5 63 18 106/75 95 09/09/16 04:01 2.00 Intake and Output 09/10/16 09/10/16 09/11/16 Cumulative From/Thru 15:00 23:00 07:00 09/05/16 11:28 - 09/11/16 05:57 Intake Total 87 ml 1280 ml 800 ml 08367 ml Output Total 1300 ml 2025 ml 49174 ml Balance 87 ml -20 ml -1225 ml -8407 ml Intake Oral 1280 ml 800 ml 9751 ml IV Total 87 ml 2977 ml Output Urine Total 1300 ml 2025 ml 71088 ml Stool Total 100 ml Drainage Total 0 ml # Voids 2 # Bowel Movements 4 Exam General: No acute distress, well-developed, well-nourished, appropriately interactive, speaking in appropriate tone, able to stand without wobble HEENT: Normocephalic, atraumatic. External ears without defect. Pupils equal, round, and reactive to light and accommodation. Anicteric sclerae, moist conjunctivae, and no lid lag. Oropharynx free of erythema and cobble stoning with moist mucosa. Neck: Supple with full range of motion. improved jugular venous distension. No bruits. No lymphadenopathy or thyromegaly. Cardiovascular: Regular rate and irregularly irregular rhythm with no murmurs, rubs, or gallops appreciated Pulmonary: Clear to auscultation in the upper lobes with no crackles, wheezes, or rhonchi, with improved airflow in lower lobes bilaterally with mild rales in the lower lobes bilaterally. Normal respiratory effort without accessory muscle use. Abdomen: Bowel tones present. Obese with improving distended abdomen, nontender. No hepatosplenomegaly or masses appreciated. no pitting edema noted Extremities: No clubbing, cyanosis, Venous stasis dermatitis in lower extremities bilaterally, with moderate improving pitting edema bilaterally in lower extremities up to thigh R>L Skin: Normal temperature, and dry without ulcers, or subcutaneous nodules appreciated. Patient has a maculopapular slight punctate rash on his arms, legs abdomen and back. Neurological: Cranial nerves grossly intact. Normal muscle strength, tone, and bulk. Reflexes, coordination, and sensory function within normal limits. No visualized gait impairment. Psychiatric: Normal mood and affect. Alert and oriented to person, place, and time. : no Liu Lab and Diagnostics Result Diagram: 09/11/16 0506 09/11/16 0942 Microbiology all negative including stool, urine and abdominal paracentesis fluid X-Rays, CTs and MRIs PROCEDURE: CT ABDOMEN AND PELVIS WITHOUT CONTRAST ([id number]) IMPRESSION: 1. Moderate bibasilar mobile pleural effusions, as well as small to moderate scattered abdominal and pelvic ascites, or of uncertain etiology. 2. Mild splenomegaly is of uncertain etiology. No liver imaging features to specifically suggest cirrhosis. Solitary mildly enlarged periportal lymph node is a nonspecific finding of uncertain etiology. 3. 3.4 x 3.1 cm infrarenal abdominal aortic aneurysm. Dictated by: Dhaval Patricia M.D. on 09/06/2016 at 13:20 PROCEDURE: US THYROID SONOGRAM IMPRESSION: 5 mm diameter hypoechoic nodule within the inferior left thyroid. Otherwise negative thyroid ultrasound. Dictated by: Fariha Wade M.D. on 09/05/2016 at 17:34 Cardiac Echo Impressions Interpretation Summary 1. Normal left ventricular size, wall thickness with globally reduced systolic function and an estimated EF of 20-25% 2. Moderately dilated right ventricle with moderately reduced systolic function. The estimated right atrial pressure is elevated. 3. At least moderate tricuspid regurgitation. Moderate mitral regurgitation. 4. Left pleural effusion There is no old study for comparison Assessment & Plan The patient is a 56 year old male who was brought to the emergency department by EMS from urgent care with atrial fibrillation with a rate in the 170s-180s, dyspnea with exertion orthopnea. He was given 324 mg aspirin and 25 IVP Cardizem. He has not seen a physician in 6 years and is on no medications to speak of. He reports recent weight gain over the last 4 weeks for 30 pounds with fluid retention in his abdomen and lower extremities. He also reports his symptoms of orthopnea, dyspnea on exertion, lower extremity swelling/pruritus began about 4-5 weeks ago. He quit smoking tobacco recently and quit drinking alcohol 3 weeks ago after his symptoms began. Hospital day 7 1 acute systolic Congestive heart failure, present on admission, Active. 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 - initial presenting Anasarca, orthopnea, dyspnea on exertion all improving currently - ECHO Ef 20-25 with global hypokinesis - endocrinology recommended beta jaquan for rate controll, which has been titrated up from atenolol 25mg daily to now Metoprolol Tartrate 100mg morning and night with metoprolol tartrate 50 mg at noon - DC Furosemide IV for Torsemide 40mg BID converted to once a day on 09/11/2016 and spironolactone 25mg daily oral per nephrology recs - will hold off lisinopril given VICENTE, will recommend the patient be started by PCP after discharge 2 Atrial fibrillation with RvR, present on admission. Active. - Tachycardic with high HR of 190 at admission, "no known history." 2nd to hyperthyroid. - EKG shows Afib. - rate now controlled and Diltiazem discontinued per endocrine recs, currently Metoprolol Tartrate 100mg morning and night with metoprolol tartrate 50 mg at noon - started methimazole 10 mg bid for hyperthyroid state converted to PTU 100mg BID on 09/10 due to likely drug rash - discontinued Heparin drip 09/09 given discussion with nephrology and pharmacy and started therapeutic Lovenox 110mg BID bridging to Warfarin - ASA 81 started. - Atorvastatin 20 mg HS. - TSH - 0.005, T4 3.12. 3 acute kidney injury, not present on admission, improving - Likely due to cardiorenal than diuresis. greatly improving 09/09 - abdominal pressure are normal, so not likely due to abdominal compartment syndrome - nephrology following discontinued Lasic Gtt to Lasix IV to current Torsemide 40mg BID and spironolactone 25mg daily - Ct abd negative for hydronephrosis 4 Hyperthyroid state due to possible hot thyroid nodule, present on admission - thyroid US shows 5mm left lobe nodule - denies any hyperthyroid symptom - TSH - 0.005, T4 3.12. - Endocrine Dr Harsh Nino recs included methimazole 10 mg bid for hyperthyroid state to be converted to PTU 100mg BID on 09/10 due to likely drug rash - patient counseled regarding risks of agranulocytosis and jaundice by endocrinology and hospitalist - beta blockers instead of diltiazem; maximize dose to achieve good rate control - Patient will need nuclear iodine thyroid uptake scan (off methimazole x 5days ) as an outpatient after initial appointment with endocrinology - initial endocrinology appointment made for follow-up in clinic on 10/14/2016 5 mild liver failure, present on admission, Active - with noted Transaminitis, hyperbilirubinemia, INR elevated, Ammonia elevated, splenomegaly noted, - Likely 2nd to Etoh cirrhosis as well be congestive hepatopathy from CHF - Abdominal CT as above - lactulose daily prn - continue to monitor 6. Possible drug rash, not present on admission, improving - Endocrine Dr Harsh Nino recs included methimazole 10 mg bid for hyperthyroid state to be converted to PTU 100mg BID on 09/10 due to likely drug rash - Benadryl cream given patient states that his itching is improving with the discontinuation of methimazole 7 Obesity, present on admission. Active. - BMI 34.0 8. abdominal aortic aneurysm, present on admission, presumed chronic - Monitor with abdominal US recommendations given at discharge 9. splenomegaly, present on admission, presumed chronic given pathology noted above - monitor 10 metabolic acidosis, acute, not present on admission, improving - likely due to kidney disease - bicarb improving - continue to monitor, consider bicitra without improvement in kidney function 11 possible suspected urinary tract infection, present on admission, treated -pyuria on UA,urine culture no growth,slightly elevated procalcitonin -ceftriaxone, started today 09/06 will treat till 09/10 Acetaminophen for mild pain when necessary. Bowel regimen Senna and MiraLAX scheduled and PRN. Zofran when necessary for nausea and vomiting. DVT prophylaxis Lovenox. SCDs in place. Disposition: Discharge in 1 days after optimizing his CHF regimen and improvement of VICENTE patient has no PCP, he needs PCP given diagnosis of multiple new comorbidities. He is interested to follow up with [facility] residency clinic with appointment scheduled on 09/14 GI Prophylaxis: Not indicated VTE Prophylaxis: Sub-Q Enoxaparin, Other (Heparin Gtt discontinued on 09/09) Resuscitation Status: CPR: Attempt Resuscitation Attending Statement The patient was seen and examined together with Dr. Amezquita on 09/11/2016 and I agree with the history, exam and plan as outlined in the note above. . Prabhu Amezquita DO Sep 11, 2016 12:26 Shamir Lee MD Sep 12, 2016 16:05
[2016-09-12] VITALS (9 sets, daily range): BP systolic 94–110; BP diastolic 65–71; PULSE 60–132; RESP 16–20; O2SAT 93–98
--- NOTE | 2016-09-12 06:50 | NUR ---
Received Received from [facility] to 1027. Tele Afib HR low 100's. Denies pain, discomfort or any other complaints. Reoriented to room including call light use.
[2016-09-12 07:13] LABS: BASOPHILS % (AUTO) 0.2 % (0-3); EOSINOPHILS % (AUTO) 25.7 % (0-5); Mean Corpuscular Volume 84.6 fL (81-100); NEUTROPHILS % (AUTO) 35.7 % (40-74); Platelet Count 171 bil/L (150-400)
[2016-09-12 07:21] LABS: INR 2.01 ratio
[2016-09-12 07:46] LABS: Phosphorus 3.8 mg/dL (2.5-4.9)
--- NOTE | 2016-09-12 08:08 | PCM.PHAPRO ---
Progress Warfarin management -Sep 11-Sep 12-Sep 1.37 1.76 2.01 -0.01 0.39 0.25 7.5 7.5 6 Edmund Noble Sep 12, 2016 08:08
[2016-09-12] MEDS: PROPYLTHIOURACIL 50 MG PO SCH ×2 (08:27→20:15)
[2016-09-12] MEDS ORDERED: PTU50T PO (09:44)
[2016-09-12] MEDS ORDERED: ASPI81TA3 PO (09:44)
[2016-09-12] MEDS ORDERED: METO100T3 PO (09:44)
[2016-09-12] MEDS ORDERED: ATOR20TA65 PO (09:44)
[2016-09-12] MEDS ORDERED: TORS20TA PO (09:44)
[2016-09-12] MEDS ORDERED: Diphenhydramine Hcl/Zinc Acet TOPICAL (09:44)
[2016-09-12] MEDS ORDERED: WARF3TAB PO (09:44)
[2016-09-12] MEDS ORDERED: METO50TA3 PO (09:44)
--- NOTE | 2016-09-12 09:53 | PCM.DIMED ---
Discharge Instructions Date of Service Sep 12, 2016 Dates of Hospitalization Sep 05, 2016 at 13:21 Discharge Diagnosis Discharge Diagnosis 1 acute systolic Congestive heart failure 2 Atrial fibrillation with RvR 3 acute kidney injury 4 Hyperthyroid state, hypoechoic nodule 5 transaminitis 6. Possible drug rash, likely due to methimazole 7 Obesity, 8. abdominal aortic aneurysm, 9. splenomegaly, Medication Instructions take medicine For your heart, kidney [id number] daily, for your heart [id number] daily, cholesterol pill [id number] in the morning, 50mg at noon, 100mg in the evening, this will be adjusted to control your heart rate torsemide 40mg daily, water pill Coumadin 6mg daily, blood thinner, level has to be checked regularly as we discussed. For thyroid PTU 100mg twice a day For rash, itchiness You can use benadryl cream as needed for your itchiness. Diet Low fat, Low Sodium, Heart Healthy Activity No restrictions Call your provider Shortness of breath, Chest pain Patient Instructions You were hospitalized with multiple problems with heart failure, uncontrolled high thyroid function, irregular heart beat. Please note that you are optimized medically, however, you will need close follow up as we discussed. Please follow medicine instruction as above You will need nuclear iodine thyroid uptake scan after stopping your thyroid medicine for 5days, this will be instructed by your doctor later. Follow-up plan Please follow up with your new primary doctor as scheduled on next Wednesday. Please follow up with title i assistant, as scheduled on 10/14/2016 Follow-up Provider: Prabhu Amezquita DO Follow-up with PCP in: Other (09/14) Cierra Rojas MD Sep 12, 2016 09:52
[2016-09-12] MEDS ORDERED: MeTOProlol XL 50 mg ER24 Tablet PO ONE (10:30)
[2016-09-12] MEDS ORDERED: MeTOProlol XL 50 mg ER24 Tablet PO SCH (11:40)
--- NOTE | 2016-09-12 12:25 | PCM.PNNEPH ---
Subjective Date of Service Sep 12, 2016 Subjective remains in Afib with RVR. wants to go home. skin rash improved. Exam Vital Signs Vital Sign - Last Date Time Temp Pulse Resp B/P Pulse Ox O2 Delivery O2 Flow Rate FiO2 09/12/16 10:25 115 09/12/16 09:38 36.9 18 94/68 95 Room Air 09/09/16 04:01 2.00 Intake and Output 09/11/16 09/11/16 09/12/16 Cumulative From/Thru 15:00 23:00 07:00 09/05/16 11:28 - 09/12/16 05:22 Intake Total 1280 ml 0 ml 96909 ml Output Total 1300 ml 83537 ml Balance -20 ml 0 ml -8427 ml Intake Oral 1280 ml 33235 ml IV Total 0 ml 2977 ml Output Urine Total 1300 ml 42242 ml Stool Total 100 ml Drainage Total 0 ml # Voids 2 # Bowel Movements 4 Exam GENERAL: The patient in no apparent distress, and alert and oriented x3. HEENT: Head is normocephalic and atraumatic. Extraocular muscles are intact. Pupils are equal, round, and reactive to light and accommodation. NECK: Supple, no JVD. LUNGS: CTA, B/L, no wheezing, no rhonchi. HEART: Normal S1/S2, irregular rhythm, no murmurs, rubs or gallops. ABDOMEN: Soft, nontender, and mild distention. Positive bowel sounds. No hepatosplenomegaly was noted. EXTREMITIES: 1+ edema, thick/chronic skin changes on LE. SKIN: Positive for excoriation lesion to lower extremities, maculopapular rash noted on both forearms. Lab and Diagnostics Result Diagram: 09/12/1634 09/12/16633 Microbiology all negative including stool, urine and abdominal paracentesis fluid X-Rays, CTs and MRIs PROCEDURE: CT ABDOMEN AND PELVIS WITHOUT CONTRAST ([id number]) IMPRESSION: 1. Moderate bibasilar mobile pleural effusions, as well as small to moderate scattered abdominal and pelvic ascites, or of uncertain etiology. 2. Mild splenomegaly is of uncertain etiology. No liver imaging features to specifically suggest cirrhosis. Solitary mildly enlarged periportal lymph node is a nonspecific finding of uncertain etiology. 3. 3.4 x 3.1 cm infrarenal abdominal aortic aneurysm. Dictated by: Dhaval Patricia M.D. on 09/06/2016 at 13:20 PROCEDURE: US THYROID SONOGRAM IMPRESSION: 5 mm diameter hypoechoic nodule within the inferior left thyroid. Otherwise negative thyroid ultrasound. Dictated by: Fariha Wade M.D. on 09/05/2016 at 17:34 Cardiac Echo Impressions Interpretation Summary 1. Normal left ventricular size, wall thickness with globally reduced systolic function and an estimated EF of 20-25% 2. Moderately dilated right ventricle with moderately reduced systolic function. The estimated right atrial pressure is elevated. 3. At least moderate tricuspid regurgitation. Moderate mitral regurgitation. 4. Left pleural effusion There is no old study for comparison Plan Impression Impression 1. Acute kidney injury due to CRS. - now with intravascular volume depletion: hemoconcentration, hyperuricemia, metabolic alkalosis, hypercalcemia. - will decrease torsemide down to once a day. - hold aldactone for now. 2. Acute left and right sided heart failure, EF 20-25%. with mod TR, mod MR 3. Atrial fibrillation with RVR. 4. Hyperthyroidism with thyroid nodule. 5. Suspected drug eruption from methimazole. Luis Guerra MD Sep 12, 2016 12:25
--- NOTE | 2016-09-12 13:02 | PCM.PNMED ---
Subjective Date of Service Sep 12, 2016 Subjective patient was d/[facility] from [facility] given stable condition. pt denied any dyspnea, orthopnea, PND, palpitation, chest pain, rate was not controlled up to 130s, spoke to , recommended digoxin loading given LV dysfunction and metoprolol succinate, discussed plan with pt became very upset agitated that he cannot be discharged today. Exam Vital Signs Vital Sign - Last Date Time Temp Pulse Resp B/P Pulse Ox O2 Delivery O2 Flow Rate FiO2 09/12/16 10:25 115 09/12/16 09:38 36.9 18 94/68 95 Room Air 09/09/16 04:01 2.00 Intake and Output 09/11/16 09/11/16 09/12/16 Cumulative From/Thru 15:00 23:00 07:00 09/05/16 11:28 - 09/12/16 05:22 Intake Total 1280 ml 0 ml 45938 ml Output Total 1300 ml 00482 ml Balance -20 ml 0 ml -8427 ml Intake Oral 1280 ml 73248 ml IV Total 0 ml 2977 ml Output Urine Total 1300 ml 15149 ml Stool Total 100 ml Drainage Total 0 ml # Voids 2 # Bowel Movements 4 Exam NAD, comfortably laying down on the bed no JVD, MMM, no LAD regular tachycardic, nl s1, s2 no mrg CTAB, no w,c S,ND,NT,normoactive BS+ warm, no edema, pulses 2/2 IVs and Medications Medications Reviewed: Medications were reviewed in detail Lab and Diagnostics Result Diagram: 09/12/1634 09/12/16 0634 Microbiology all negative including stool, urine and abdominal paracentesis fluid X-Rays, CTs and MRIs PROCEDURE: CT ABDOMEN AND PELVIS WITHOUT CONTRAST ([id number]) IMPRESSION: 1. Moderate bibasilar mobile pleural effusions, as well as small to moderate scattered abdominal and pelvic ascites, or of uncertain etiology. 2. Mild splenomegaly is of uncertain etiology. No liver imaging features to specifically suggest cirrhosis. Solitary mildly enlarged periportal lymph node is a nonspecific finding of uncertain etiology. 3. 3.4 x 3.1 cm infrarenal abdominal aortic aneurysm. Dictated by: Dhaval Patricia M.D. on 09/06/2016 at 13:20 PROCEDURE: US THYROID SONOGRAM IMPRESSION: 5 mm diameter hypoechoic nodule within the inferior left thyroid. Otherwise negative thyroid ultrasound. Dictated by: Fariha Wade M.D. on 09/05/2016 at 17:34 Cardiac Echo Impressions Interpretation Summary 1. Normal left ventricular size, wall thickness with globally reduced systolic function and an estimated EF of 20-25% 2. Moderately dilated right ventricle with moderately reduced systolic function. The estimated right atrial pressure is elevated. 3. At least moderate tricuspid regurgitation. Moderate mitral regurgitation. 4. Left pleural effusion There is no old study for comparison Assessment & Plan The patient is a 56 year old male who was brought to the emergency department by EMS from urgent care with atrial fibrillation with a rate in the 170s-180s, dyspnea with exertion orthopnea. He was given 324 mg aspirin and 25 IVP Cardizem. He has not seen a physician in 6 years and is on no medications to speak of. He reports recent weight gain over the last 4 weeks for 30 pounds with fluid retention in his abdomen and lower extremities. He also reports his symptoms of orthopnea, dyspnea on exertion, lower extremity swelling/pruritus began about 4-5 weeks ago. He quit smoking tobacco recently and quit drinking alcohol 3 weeks ago after his symptoms began. Hospital day 7 1 acute systolic Congestive heart failure, present on admission, Active. 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 - DC Furosemide IV for Torsemide 40mg BID converted to once a day on 09/11/2016 and spironolactone 25mg daily, decreased to toresemide daily, aldactone stopped today per renal - will hold off lisinopril given VICENTE, will recommend the patient be started by PCP after discharge 2 Atrial fibrillation with RvR, present on admission. Active. - Tachycardic with high HR of 190 at admission, "no known history." 2nd to hyperthyroid. - EKG shows Afib. - rate controlled and Diltiazem discontinued per endocrine recs, switched to BB , loaded with digoxin 0.5mg po this AM, 0.25mg q6h for four doses then 0.125mg based on level. - started methimazole 10 mg bid for hyperthyroid state converted to PTU 100mg BID on 09/10 due to likely drug rash - discontinued Heparin drip 09/09 given discussion with nephrology and pharmacy and started therapeutic Lovenox 110mg BID bridging to Warfarin, INR in tx range , stopped LMWH today. - ASA 81 started. - Atorvastatin 20 mg HS. - TSH - 0.005, T4 3.12. - consulted this AM, appreciate input 3 acute kidney injury, not present on admission, improving - Likely due to cardiorenal than diuresis. greatly improving 09/09 - abdominal pressure are normal, so not likely due to abdominal compartment syndrome - nephrology following, appreciate diuretics as above - Ct abd negative for hydronephrosis 4 Hyperthyroid state due to possible hot thyroid nodule, present on admission - thyroid US shows 5mm left lobe nodule - denies any hyperthyroid symptom - TSH - 0.005, T4 3.12. - Endocrine Dr Harsh Nino recs included methimazole 10 mg bid for hyperthyroid state to be converted to PTU 100mg BID on 09/10 due to likely drug rash - patient counseled regarding risks of agranulocytosis and jaundice by endocrinology and hospitalist - beta blockers instead of diltiazem; maximize dose to achieve good rate control - Patient will need nuclear iodine thyroid uptake scan (off methimazole x 5days ) as an outpatient after initial appointment with endocrinology - initial endocrinology appointment made for follow-up in clinic on 10/14/2016 5 mild liver failure, present on admission, Active - with noted Transaminitis, hyperbilirubinemia, INR elevated, Ammonia elevated, splenomegaly noted, - Likely 2nd to Etoh cirrhosis as well be congestive hepatopathy from CHF - Abdominal CT as above - lactulose daily prn - continue to monitor 6. Possible drug rash, not present on admission, improving - Endocrine Dr Harsh Nino recnoelle included methimazole 10 mg bid for hyperthyroid state to be converted to PTU 100mg BID on 09/10 due to likely drug rash - Benadryl cream given patient states that his itching is improving with the discontinuation of methimazole 7 Obesity, present on admission. Active. - BMI 34.0 8. abdominal aortic aneurysm, present on admission, presumed chronic - Monitor with abdominal US recommendations given at discharge 9. splenomegaly, present on admission, presumed chronic given pathology noted above - monitor 10 metabolic acidosis, acute, not present on admission, improving - likely due to kidney disease - bicarb improving - continue to monitor, consider bicitra without improvement in kidney function 11 possible suspected urinary tract infection, present on admission, treated -pyuria on UA,urine culture no growth,slightly elevated procalcitonin -ceftriaxone, started today 09/06 will treat till 09/10 Acetaminophen for mild pain when necessary. Bowel regimen Senna and MiraLAX scheduled and PRN. Zofran when necessary for nausea and vomiting. DVT prophylaxis systemic AC. Disposition: likely 1-2more days, d/c being delayed due to uncontrolled rate. pt has follow up appointment with on 09/14 in Residency clinic GI Prophylaxis: Not indicated VTE Prophylaxis: Sub-Q Enoxaparin, Other (Heparin Gtt discontinued on 09/09) Resuscitation Status: CPR: Attempt Resuscitation Time spent 35min Cierra Rojas MD Sep 12, 2016 12:21
--- NOTE | 2016-09-12 16:08 | NUR ---
Social Work Note: Readiness for Discharge Data& Assessment: Per MD pt is getting closer to being medically ready for discharge. SW met with pt at bedside to confirm discharge plan and assess for any unmet needs. Pt confirmed he is discharging home and plans to drive himself home at time of discharge. Pt reminded of his [facility] Appt. scheduled for this Wednesday09/14/2016 for 4:15p.m. Pt denies any other needs at this time. SW to continue to follow if any needs arise. Plan: Anticipated discharge home via POV when medically ready with follow up at [facility] scheduled for this Wednesday09/14/2016 for 4:15p.m. Pt denies any other needs at this time. SW to continue to follow if any needs arise. REMEDIOS Sarkar
--- NOTE | 2016-09-12 18:34 | NUR ---
Cardiac- Patient's heart rate has been consistently 100's up to 130's depending on activity. Patient is frustrated that he has to stay in hospital and that the medicines don't seem to be effective for rate control. BP has remained stable with increased Metoprol dose. Denies chest pain or shortness of breath. Up ad rivka in room and silva. Tolerating activity well.
--- NOTE | 2016-09-12 18:49 | CONS ---
[address] [address] CONSULTATION REPORT PATIENT: JILLIAN PUENTES : 1960 MR#: [id number] ADMIT: 09/05/2016 JOB ID: [id number] DATE OF SERVICE: 09/12/2016 CARDIOLOGY CONSULTATION: I have been asked by Dr. Rojas of the hospitalists to assist with managing the patient's persistent rapid atrial fibrillation in the setting of hyperthyroidism. HISTORY OF PRESENT ILLNESS: This gentleman presented to the hospital on September 05 with a history of progressive exertional dyspnea, lower extremity edema, and anasarca. He states that he was in fairly normal health, without any significant medical issues and on no medications, until sometime after [place] when he developed a flu-like syndrome which cleared up after a couple of weeks. Subsequently, he has been aware of gradually progressive lower extremity edema, abdominal distention, and progressive dyspnea. Associated with this were symptoms of increasing fatigue, generalized weakness, and a loss of his appetite. This gentleman was found to be in rapid atrial fibrillation with a rate of 170-180 without any awareness on the patient's part regarding onset or duration of his rapid atrial fibrillation. He was also found to be significantly hyperthyroid. In addition he was noted to be acidotic, with moderate liver function abnormalities and significant elevation in the bilirubin and ammonia level, and an echocardiogram subsequently demonstrated significant left ventricular systolic dysfunction with an ejection fraction estimated at around 20% to 25%. The left ventricular chamber size appeared normal, with normal wall thickness. Left ventricular systolic function was globally severely hypokinetic, with moderate right ventricular systolic dysfunction noted as well. Central venous pressure was estimated at greater than 15 mmHg and there was no evidence to suggest significant pulmonary hypertension. The patient was seen by Endocrinology, who recommended methimazole 10 mg twice a day. However, the patient broke out in a fairly significant rash and developed progressive renal insufficiency and ultimately was changed to PTU 100 mg b.i.d. a couple of days ago. The patient developed significant renal insufficiency with a creatinine rising up to 3.3 for unclear reasons. He responded well to diuretics however and gradually over the course of the last week lost close to 30 pounds of edema fluid and is feeling much better and quite anxious to be discharged home. Despite up to 250 mg of metoprolol tartrate daily, however, his heart rate response to atrial fibrillation continued to be high, ranging in the 120-130 range much of the time. The patient at this point is quite anxious to go home. He lives by himself. 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 He no longer has problems with significant dyspnea or nocturnal pulmonary congestion and is feeling well from a cardiac standpoint, tolerating his current medications well. PAST MEDICAL HISTORY: Unremarkable. PRIMARY CARE PHYSICIAN: He has does not have a primary care provider. MEDICATIONS: He was on no medications on admission to the hospital. FAMILY HISTORY: Notable for mother who apparently from valvular heart disease. His father is still living at age 97. SOCIAL HISTORY: Again the patient currently works he lives alone, has no family. He is a nonsmoker, although has a history of previous tobacco use. He does not know his cholesterol or if he has a history of hypertension. He does have a history of heavy alcohol use for a number of years, up until he got sick about four weeks ago, drinking about 1/3 of a quart of liquor daily. PHYSICAL EXAMINATION: Shows a 56-year-old male with mild exophthalmos who is mildly anxious and somewhat irritated that he cannot be discharged sooner. He does not appear in any acute distress other than his mild exophthalmos and his HEENT exam is unremarkable. His jugular venous pressure is mildly distended, visible at the mid neck at about 45 degrees, certainly likely much improved from his admission physical. Lung linder demonstrate decreased breath sounds at the left lung base consistent with his known pleural effusion. Cardiac auscultation is notable for an irregularly irregular rhythm with moderately rapid ventricular response and a soft S3 gallop. I do not hear any cardiac murmurs. Abdomen is moderately distended. There is no hepatic percussion tenderness or palpable hepatic enlargement. His lower abdomen is erythematous, with some excoriation, and what appears to be a healing rash. Lower extremities have some brawny edema with prominent erythema and excoriations, and appear warm, with moderate residual edema palpable up to his thighs. No focal neurologic or musculoskeletal abnormalities noted. LABORATORY WORK: Shows a moderate polycythemia with a hematocrit of 51 and hemoglobin of 17.5. White count is normal. He has prominent eosinophilia and monocytosis noted, with a relatively low leukocyte count. This may need further investigation. His chemistries show mild hyponatremia. His metabolic acidosis present on admission has been corrected and his creatinine has returned from a high of 3.3 on September 07, stabilizing at around 1.5. His potassium level seems to be within the normal range at 3.9. Bilirubin has gradually improved from 2.4 down to 1.9. BNP a couple of days ago was 6400. His transaminases transiently increased and then improved. He is on warfarin now on his protime today was 2.0. Urinalysis is notable for hematuria and pyuria and bacteriuria on admission. Most recent chest x-ray on September 08 showed bilateral pleural effusions with compressive atelectasis or pneumonia at the left lung base. Abdominal and pelvic CT scan performed on September 06 showed evidence of calcific atherosclerosis and mild aneurysmal dilatation of the infrarenal abdominal aortic aorta. IMPRESSION: 1. The patient has significant global left ventricular systolic dysfunction, most likely were secondary to rate-related cardiomyopathy, although perhaps contributed to by his fairly heavy alcohol use in the past. He appears fairly well compensated at this time. 2. Persistent rapid atrial fibrillation: Maintaining adequate rate control is going to be difficult in a patient who remains hyperthyroid. I have recommended that his metoprolol be increased to 150 mg b.i.d. We will make that metoprolol succinate instead of tartrate. I have also recommended digoxin loading for the next 24 hours and he can go home on 0.125 mg of digoxin given his renal insufficiency. An ISHA inhibitor is relatively contraindicated at this point with his renal insufficiency and with his relatively low blood pressure and requirements for high-dose beta jaquan therapy. Torsemide is inadequate diuretic and he continues to diurese but will require close outpatient followup. He is currently anticoagulated with warfarin for his atrial fibrillation and aspirin should be discontinued. 3. I am going to repeat this gentleman's limited echocardiogram tomorrow morning to see if we can determine if any improvement has been made, but otherwise if he is tolerating 150 mg dose of the metoprolol succinate then he can be discharged home tomorrow on 150 mg twice a day, digoxin 0.125 mg daily, and his atorvastatin, which I would probably increase to 40 mg a day as long as his liver function studies are okay. His torsemide at 40 mg daily is probably adequate as well. He should be seen on a fairly frequent basis by a primary care provider and follow up as scheduled with Dr. Nino for his thyroid function. I will work tomorrow to make arrangements for him to follow up in our clinic sometime in the next couple of weeks as well. He understands the need to quit drinking completely in view of his cardiomyopathy, atrial fibrillation, and liver function abnormalities. I appreciate seeing this gentleman in consultation and assisting with his evaluation.
[2016-09-12] MEDS: MeTOProlol XL 50 mg ER24 Tablet PO SCH (20:20)
[2016-09-13 00:58] VITALS: BP 100/66; PULSE 63; RESP 20; O2SAT 93
--- NOTE | 2016-09-13 04:37 | NUR ---
tele: since adding digoxin and increasing metoprolol pt's heart rate has went from afib 120's to 100. Pt. asymptomatic.
[2016-09-13 05:14] VITALS: BP 101/70; PULSE 82; RESP 20; O2SAT 95
[2016-09-13 07:11] LABS: BASOPHILS % (AUTO) 0.4 % (0-3); EOSINOPHILS % (AUTO) 26.9 % (0-5); Mean Corpuscular Volume 84.8 fL (81-100); NEUTROPHILS % (AUTO) 36.9 % (40-74); Platelet Count 176 bil/L (150-400)
[2016-09-13 07:28] LABS: INR 2.15 ratio
[2016-09-13 07:41] LABS: Magnesium 1.8 mg/dL (1.6-2.6); Phosphorus 4.1 mg/dL (2.5-4.9)
--- NOTE | 2016-09-13 08:24 | PCM.PHAPRO ---
Progress Warfarin management -Sep 12-Sep 13-Sep 1.76 2.01 2.15 0.39 0.25 0.14 7.5 6 6 Edmund Noble Sep 13, 2016 08:23
[2016-09-13] MEDS ORDERED: MeTOProlol XL 50 mg ER24 Tablet PO SCH (08:30)
[2016-09-13 08:52] VITALS: BP 95/60; PULSE 120; O2SAT 94
[2016-09-13 09:01] VITALS: PULSE 130
[2016-09-13] MEDS: MeTOProlol XL 50 mg ER24 Tablet PO SCH (09:10)
[2016-09-13 09:11] VITALS: PULSE 120
[2016-09-13] MEDS: PROPYLTHIOURACIL 50 MG PO SCH (09:11)
[2016-09-13] MEDS ORDERED: METO-274 PO (11:09)
[2016-09-13] MEDS ORDERED: Digoxin PO (11:09)
--- NOTE | 2016-09-13 11:17 | PCM.DC.MED ---
Discharge Summary Date of Service Sep 13, 2016 Dates of Hospitalization Date of Hospital Admission Sep 05, 2016 at 13:21 Date of Discharge: Sep 13, 2016 Providers: Admitting Physician: Refugio Cueto MD Primary Care Physician: Nopirene Attending Physician: Refugio Cueto MD Diagnosis at Time of Discharge Diagnosis at Time of Discharge 1 acute systolic Congestive heart failure 2 Atrial fibrillation with RvR 3 acute kidney injury 4 Hyperthyroid state, hypoechoic nodule 5 transaminitis 6. Possible drug rash, likely due to methimazole 7 Obesity, 8. abdominal aortic aneurysm, 9. splenomegaly, Procedures XRay, CTs & MRIs PROCEDURE: CT ABDOMEN AND PELVIS WITHOUT CONTRAST ([id number]) IMPRESSION: 1. Moderate bibasilar mobile pleural effusions, as well as small to moderate scattered abdominal and pelvic ascites, or of uncertain etiology. 2. Mild splenomegaly is of uncertain etiology. No liver imaging features to specifically suggest cirrhosis. Solitary mildly enlarged periportal lymph node is a nonspecific finding of uncertain etiology. 3. 3.4 x 3.1 cm infrarenal abdominal aortic aneurysm. Dictated by: Dhaval Patricia M.D. on 09/06/2016 at 13:20 PROCEDURE: US THYROID SONOGRAM IMPRESSION: 5 mm diameter hypoechoic nodule within the inferior left thyroid. Otherwise negative thyroid ultrasound. Dictated by: Fariha Wade M.D. on 09/05/2016 at 17:34 Cardiac Echo Impression Interpretation Summary 1. Normal left ventricular size, wall thickness with globally reduced systolic function and an estimated EF of 20-25% 2. Moderately dilated right ventricle with moderately reduced systolic function. The estimated right atrial pressure is elevated. 3. At least moderate tricuspid regurgitation. Moderate mitral regurgitation. 4. Left pleural effusion There is no old study for comparison Brief History The patient reports 4-6 weeks of increasing abdominal girth, leg edema, and severe dyspnea on exertion. He states that his abdomen and legs have been progressively distended firm and uncomfortable since this time. His dyspnea is reproducible with mild activities (NYHA class III). There is no associated chest pain or palpitation. He has difficulty lying down due to increased abdominal girth, but otherwise does not have orthopnea. He has no prior history of cardiac or liver disease. He acknowledges drinking a fifth of spirits every 3 days. He has had no prior episodes of jaundice or diagnosis of cirrhosis. On admission he was noted to have elevated free T4 of 3.12 (upper limit of normal 1.77) with undetectable TSH. He has no prior history of thyroid disease. On thyroid review of systems he has had no insomnia or irritability. He denies episodes of diaphoresis or heat intolerance. His appetite is reduced. He has gained weight which he attributes to water accumulation. He has had no consistent eye discomfort or bulging. He notes no symptoms in his lower neck. No palpitations, tremor, diarrhea, skin or hair and nails changes. He is not aware of any prior head and neck irradiation. There is no family history of thyroid cancer. One brother takes a thyroid medication, but he is not sure which one or why. Another brother has rheumatoid arthritis with interstitial lung disease. Hospital Course The patient is a 56 year old male who was brought to the emergency department by EMS from urgent care with atrial fibrillation with a rate in the 170s-180s, dyspnea with exertion orthopnea. He was given 324 mg aspirin and 25 IVP Cardizem. He has not seen a physician in 6 years and is on no medications to speak of. He reports recent weight gain over the last 4 weeks for 30 pounds with fluid retention in his abdomen and lower extremities. He also reports his symptoms of orthopnea, dyspnea on exertion, lower extremity swelling/pruritus began about 4-5 weeks ago. He quit smoking tobacco recently and quit drinking alcohol 3 weeks ago after his symptoms began. Hospital day 7 The patient was admitted for acute systolic congestive heart failure. The patient was also found to have atrial fibrillation with RVR most likely secondary to hyperthyroidism. The patient's hyperthyroidism medication has been increased and the patient has been scheduled to follow-up with Dr. Patrick Nino on 10/14/2016. The patient also had acute kidney injury which is most likely due to the patient's acute CHF. Dr. Dupont of nephrology was consulted and suggested stopping the Aldactone however stated that it was okay to continue with the torsemide. The patient acute kidney injury is resolving. The patient's creatinine on 09/07/2016 was 3.01 and today on discharge the patient's creatinine is 1.42. Patient is being discharged home on 0.25 mg of digoxin, 150 mg twice a day metoprolol succinate, atorvastatin 40 mg daily at bedtime, torsemide 40 mg daily , patient will discontinue the use of aspirin. It has been stressed to the patient that he needs to follow-up with cardiology Dr. Spring in 2-3 weeks, his PCP on 09/13/2016, and also he needs a close follow-up with endocrinology Dr. Nino to manage the patient's hyperthyroidism. The patient stated that he understood and is willing to comply. Cardiology has been following the patient and after the patient's echo this morning they have clear ed the patient to go home with these adjustments of medications. 1 acute systolic Congestive heart failure, present on admission, Active. 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 - DC Furosemide IV for Torsemide 40mg BID converted to once a day on 09/11/2016 and spironolactone 25mg daily, decreased to toresemide daily, aldactone stopped today per renal - will hold off lisinopril given VICENTE, will recommend the patient be started by PCP after discharge 2 Atrial fibrillation with RvR, present on admission. Active. - Tachycardic with high HR of 190 at admission, "no known history." 2nd to hyperthyroid. - EKG shows Afib. - rate controlled and Diltiazem discontinued per endocrine recs, switched to BB , loaded with digoxin 0.5mg po this AM, 0.25mg q6h for four doses then 0.125mg based on level. - started methimazole 10 mg bid for hyperthyroid state converted to PTU 100mg BID on 09/10 due to likely drug rash - discontinued Heparin drip 09/09 given discussion with nephrology and pharmacy and started therapeutic Lovenox 110mg BID bridging to Warfarin, INR in tx range , stopped LMWH today. - ASA 81 started. - Atorvastatin 20 mg HS. - TSH - 0.005, T4 3.12. - cardiology is following 3 acute kidney injury, not present on admission, improving - Likely due to cardiorenal than diuresis. greatly improving 09/09 - abdominal pressure are normal, so not likely due to abdominal compartment syndrome - nephrology following, appreciate diuretics as above - Ct abd negative for hydronephrosis 4 Hyperthyroid state due to possible hot thyroid nodule, present on admission - thyroid US shows 5mm left lobe nodule - denies any hyperthyroid symptom - TSH - 0.005, T4 3.12. - Endocrine Dr Harsh santoro included methimazole 10 mg bid for hyperthyroid state to be converted to PTU 100mg BID on 09/10 due to likely drug rash - patient counseled regarding risks of agranulocytosis and jaundice by endocrinology and hospitalist - beta blockers instead of diltiazem; maximize dose to achieve good rate control - Patient will need nuclear iodine thyroid uptake scan (off methimazole x 5days ) as an outpatient after initial appointment with endocrinology - initial endocrinology appointment made for follow-up in clinic on 10/14/2016 5 mild liver failure, present on admission, Active - with noted Transaminitis, hyperbilirubinemia, INR elevated, Ammonia elevated, splenomegaly noted, - Likely 2nd to Etoh cirrhosis as well be congestive hepatopathy from CHF - Abdominal CT as above - lactulose daily prn - continue to monitor 6. Possible drug rash, not present on admission, improving - Endocrine Dr Harsh santoro included methimazole 10 mg bid for hyperthyroid state to be converted to PTU 100mg BID on 09/10 due to likely drug rash - Benadryl cream given patient states that his itching is improving with the discontinuation of methimazole 7 Obesity, present on admission. Active. - BMI 34.0 8. abdominal aortic aneurysm, present on admission, presumed chronic - Monitor with abdominal US recommendations given at discharge 9. splenomegaly, present on admission, presumed chronic given pathology noted above - monitor 10 metabolic acidosis, acute, not present on admission, improving - likely due to kidney disease - bicarb improving - continue to monitor, consider bicitra without improvement in kidney function 11 possible suspected urinary tract infection, present on admission, treated -pyuria on UA,urine culture no growth,slightly elevated procalcitonin -ceftriaxone, started today 09/06 will treat till 09/10 Acetaminophen for mild pain when necessary. Bowel regimen Senna and MiraLAX scheduled and PRN. Zofran when necessary for nausea and vomiting. DVT prophylaxis systemic AC. Disposition:pt has follow up appointment with on 09/14 in Residency clinic Exam Vital Signs (Last) Date Time Temp Pulse Resp B/P Pulse Ox O2 Delivery O2 Flow Rate FiO2 09/13/16 09:11 120 09/13/16 08:52 36.5 95/60 94 Room Air 09/13/16 05:14 20 09/09/16 04:01 2.00 Exam Physical Exam: GEN: Patient was awake, alert, responding appropriately to questions HEENT: PERRLA, EOMI, Neck soft supple, trachea midline, nomocephalic/atraumatic CV: +S1/S2, irregular, no murmurs auscultated Respiratory: CTAB, no wheezes, rales, rhonchi GI: +bowel sounds x4, soft, compressible, non TTP EXT: no c/c +1 pitting edema of the extremities bilaterally, multiple excoriations of the lower extremities Neuro: CN II-XII grossly intact Psych: mood and affect were appropriate Test 09/05/16 14:00 09/05/16 18:38 09/06/16 03:00 09/06/16 16:50 Lactic Acid Level 2.0mmol/L (0.4-2.0) Ammonia 67ug/dL (18-53) Thyroid Stimulating Hormone (TSH) < 0.005uIU/mL (0.450-4.500) Urine Ictotest Positive (Negative) Urine RBC 0-2/hpf (0-2) Urine WBC 11-50/hpf (0-5) Urine Epithelial Cells Moderate/hpf (NONE-MOD) Urine Crystals None seen (NONE SEEN) Urine Bacteria Moderate/hpf (NONE-FEW) Urine Hyaline Casts 5/20/lpf (NONE) Urine Granular Casts None seen (NONE SEEN) Urine Waxy Casts None seen (NONE SEEN) Urine Red Blood Cell Casts None seen (NONE SEEN) Urine White Blood Cell Casts None seen (NONE SEEN) Urine Mucus None seen (None Seen) Urine Trichomonas None seen (NONE SEEN) Urine Yeast None (NONE SEEN) Urinalysis Comment None Urine Culture Reflexed Indicated Triglycerides Level 104mg/dL (0-149) Cholesterol Level 103mg/dL (100-199) LDL Cholesterol, Calculated 69.200mg/dL (0-99) VLDL Cholesterol 20.800mg/dL HDL Cholesterol 13mg/dL (>39) Cholesterol/HDL Ratio 7.92 (0.0-4.4) Body Fluid Source Peritoneal fluid Body Fluid Color Straw (Clear) Body Fluid Appearance Slightly hazy Body Fluid WBC 185/mm3 Body Fluid RBC 1390/mm3 Body Fluid Polynuclear WBCs 16% Body Fluid Lymphocytes 47% Body Fluid Monocytes 31% Body Fluid Eosinophils 0% Body Fluid Basophils 0% Test 09/06/16 17:50 09/07/16 04:40 09/07/16 11:45 09/07/16 15:36 Lactate Dehydrogenase 261U/L (100-190) Total Creatine Kinase 45U/L (21-232) Troponin T < 0.010ug/L (0.0-0.011) Cortisol 15.6ug/dL (.) Erythrocyte Sedimentation Rate 1mm/hr (0-30) Hemoglobin A1c 5.8% (4.8-5.6) Osmolality 289 (275-300) Rheumatoid Factor 9.7IU/mL (0.0-13.9) Anti-Nuclear Antibody Screen Negative (Negative) Anti-Glomerular Basement Memb Ab 3units (0-20) Complement C3 109mg/dL (82-167) Complement C4 12mg/dL (14-44) Streptozyme 38.4IU/mL (0.0-200.0) Urine Osmolality 232mOs/kH2O (250-1200) Hepatitis A IgM Antibody Negative (Negative) Hepatitis B Surface Antigen Negative (Negative) Hepatitis B Core IgM Antibody Negative (Negative) Hepatitis C Antibody <0.1s/co ratio (0.0-0.9) Hepatitis C Comment Comment (.) Test 09/08/16 05:25 09/09/16 04:20 09/09/16 15:20 09/09/16 22:09 Myeloperoxidase <9.0U/mL (0.0-9.0) Cytoplasmic ANCA (c-ANCA) Antibody <1:20titer (Neg:<1:20) Proteinase 3 (PR3) Antibodies <3.5U/mL (0.0-3.5) Atypical p-ANCA <1:20titer (Neg:<1:20) Perinuclear ANCA (p-ANCA) Antibody <1:20titer (Neg:<1:20) Activated Partial Thromboplast Time 50.9sec (22.8-33.0) Hold Blue Top Tube Received (Received) Test 09/10/16 08:22 3/9/17 09:15 09/10/16 10:32 09/11/16 09:25 Pro-B-Type Natriuretic Peptide 6418pg/mL (0-210) Urine Color Yellow (YELLOW) Urine Appearance Clear (CLEAR,HAZY) Urine pH 6.0 (5.0-8.0) Urine Specific [place] 1.005 (1.003-1.035) Urine Protein Negativemg/dL (NEG,TRACE) Urine Glucose (UA) Negativemg/dL (NEGATIVE) Urine Ketones Negativemg/dL (NEGATIVE) Urine Occult Blood Large (NEGATIVE) Urine Nitrite Negative (NEGATIVE) Urine Bilirubin Negative (NEGATIVE) Urine Urobilinogen Normalmg/dL (NORMAL) Urine Leukocyte Esterase Negative (NEGATIVE) Uric Acid 17.0mg/dL (2.6-7.2) Free Thyroxine 1.03ng/dL (0.82-1.77) Thyroxine (T4) 7.4ug/dL (4.7-13.3) Test 09/12/16 06:34 09/13/16 06:38 09/13/16 08:40 Procalcitonin 0.17ng/mL (0.00-0.08) White Blood Count 5.6th/mm3 (3.8-10.1) Red Blood Count 6.25mil/mm3 (4.40-5.80) Mean Corpuscular Volume 84.8fL (81-100) Mean Corpuscular Hemoglobin 29.0pg (27.0-35.0) Mean Corpuscular Hemoglobin Concent 34.2% (32.0-37.0) Red Cell Distribution Width 13.2% (12.3-15.4) Platelet Count 176bil/L (150-400) Neutrophils (%) (Auto) 36.9% (40-74) Lymphocytes (%) (Auto) 24.6% (14-46) Monocytes (%) (Auto) 11.0% (4-12) Eosinophils (%) (Auto) 26.9% (0-5) Basophils (%) (Auto) 0.4% (0-3) Prothrombin Time 23.4sec (8.1-12.5) Prothromb Time International Ratio 2.15ratio Phosphorus Level 4.1mg/dL (2.5-4.9) Magnesium Level 1.8mg/dL (1.6-2.6) Total Bilirubin 1.8mg/dL (0.0-1.2) Aspartate Amino Transf (AST/SGOT) 29U/L (0-50) Alanine Aminotransferase (ALT/SGPT) 29U/L (0-44) Alkaline Phosphatase 73U/L (25-150) Total Protein 6.9g/dL (6.4-8.4) Albumin 3.8g/dL (3.4-5.0) Hemoglobin 18.5g/dL (13.8-17.2) Hematocrit 54.3% (41.0-50.0) Sodium Level 135mEq/L (134-144) Potassium Level 4.0mEq/L (3.5-5.2) Chloride Level 88mEq/L (97-108) Carbon Dioxide Level 29mmol/L (18-29) Blood Urea Nitrogen 33mg/dL (6-24) Creatinine 1.42mg/dL (0.76-1.27) Estimat Glomerular Filtration Rate 55mL/min (>59) Glucose Level 105mg/dL (60-99) Calcium Level 9.1mg/dL (8.5-10.1) Microbiology Results all negative including stool, urine and abdominal paracentesis fluid Discharge Medications Discharge Medications ([Digoxin]) 0.125 MG PO DAILY Prescribed by: VAHE URBANO DO Metoprolol Succinate ER (Metoprolol Succinate ER) 100 Mg Tab.er.24h 150 MG PO BID Prescribed by: VAHE URBANO DO Propylthiouracil (Propylthiouracil) 50 Mg Tablet 100 MG PO BID Prescribed by: LINO MCGEE MD Torsemide (Demadex) 20 Mg Tablet 40 MG PO DAILY Prescribed by: LINO MCGEE MD Warfarin Sodium (Coumadin) 3 Mg Tablet 6 MG PO DAILY@17 Prescribed by: LINO MCGEE MD As needed ([Diphenhydramine Hcl/Zinc Acet]) 1 APPLIC/0.25 GM CREAM 1 APPLIC TOPICAL Q6H PRN PRN For Itching Prescribed by: LINO MCGEE MD Additional med instructions take medicine For your heart, kidney [id number] daily, for your heart [id number] daily, cholesterol pill [id number] in the morning, 50mg at noon, 100mg in the evening, this will be adjusted to control your heart rate torsemide 40mg daily, water pill Coumadin 6mg daily, blood thinner, level has to be checked regularly as we discussed. For thyroid PTU 100mg twice a day For rash, itchiness You can use benadryl cream as needed for your itchiness. Followup Plan Follow-up plan Please follow up with your new primary doctor as scheduled on next Wednesday. 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 Please note that you are optimized medically, however, you will need close follow up as we discussed. Please follow medicine instruction as above You will need nuclear iodine thyroid uptake scan after stopping your thyroid medicine for 5days, this will be instructed by your doctor later. Follow-up Provider: Prabhu Amezquita DO Follow-up with PCP in: Other (09/14) Provider: José Spring MD Follow-up in: 3 weeks (if appointment has not been made please call to make a follow-up appointment) Mid-level Provider: Patrick Nino MD Follow-up with Mid-level in: 3 weeks (abdomen appointment scheduled for 2016) Time spent Greater than 35 minutes copies to: Prabhu Amezquita DO; José Spring MD; Patrick Nino MD, Precious L DO Sep 13, 2016 11:17
--- NOTE | 2016-09-13 12:06 | DRSVH ---
[facility] [address] [place] [address] Echocardiogram Report Name: JILLIAN PUENTES Study Date: 09/13/2016 Height: 72 in Hospital Exam Location: [facility] Weight: 231 lb Gender: Female BSA: 2.3 m2 : 1960 Age: 56 yrs BP: 101/70 m mHg Reason For Study: RE-EVALUATE VENTRICULAR FUNCTION Performed By: Fiona Shay Referring Physician: JOSÉ SHARPE Interpretation Summary The left ventricle is normal in size. There is normal left ventricular wall thickness. Left ventricular systolic function is severely reduced. The ejection fraction is estimated to be 25-30%. Compared to the prior exam, left ventricular function is slightly improved. No other echocardiographic abnormalities seen. Procedure: This is a limited echocardiogram to re-evaluate ventricular function. Comparison is made with the echocardiogram of 09-06-2016. The study quality was technically adequate. A contrast injection of Definity was performed to improve assessment of LV function. Contrast was injected into an intravenous site in the left arm. A total of 5 cc of contrast was given. The patient was in atrial fibrillation with controlled ventricular rate during the exam. The patient did well with the Definity Contrast. No complications were noted. Left Ventricle: The left ventricle is normal in size. There is normal left ventricular wall thickness. There is no thrombus. Left ventricular systolic function is severely reduced. The ejection fraction is estimated to be 25- 30%. Compared to the prior exam, left ventricular function is slightly improved. Diastolic function could not be accurately assessed due to atrial fibrillation. Right Ventricle: The right ventricle is mildly dilated. Right ventricular systolic function is mildly reduced. Atria: There is moderate biatrial enlargement. Mitral Valve: The mitral valve is normal. Aortic Valve: The aortic valve is grossly normal. Tricuspid Valve: The tricuspid valve is normal. Pericardium/ Pleura There is no pericardial effusion. MMode/2D Measurements & Calculations LVIDd EDV(MOD-sp2) LV ortiz. diameter/BSA LV sys. diameter/BSA : 5.6 cm : 165.6 ml (cm/m^2): 2.5 (cm/m^2): 2.2 LVIDs : 5.0 cm FS: 10.2 % IVSd : 1.cm LVPWd : 0.9cm Doppler Measurements & Calculations MV E max radha: 97.2 cm/sec Reading Physician:12:05 PM
--- NOTE | 2016-09-13 12:23 | NUR ---
DISCHARGE Patient discharge home at 1220, he will drive himself home. Patient denies chest pain, nausea, and shortness of breath. Medications reviewed, new Rx's provided, and patient verbalizes understanding. Follow up appointment and care reviewed with patient, care notes for CHF and thyroid tests given, and IV catheter removed intact. Teaching done on CHF, Warfarin, and A-fib.
--- NOTE | 2016-09-13 14:33 | PROG NOTE ---
[address] [address] PROGRESS NOTE PATIENT: JILLIAN PUENTES : 1960 MR#: [id number] ADMIT: 09/05/2016 JOB ID: [id number] DATE: FOLLOWUP NOTE: The patient continues to do well clinically. His heart rate still ranges between 100 and 130 beats per minute with atrial fibrillation, but he has just been started up on 150 mg of metoprolol b.i.d. He has also just been loaded with Lanoxin, and I suspect after three or four days on this combination of medications, his heart rate will come under improved control. He remains minimally symptomatic clinically and is anxious to go home. A limited echocardiogram was repeated this morning, suggesting moderate improvement in his left ventricular systolic dysfunction. I have left a list of recommendations regarding this patient's discharge instructions. From a cardiac medication standpoint, he needs to go home obviously on warfarin. I would increase his atorvastatin to 40 mg daily. I would send him home on Lanoxin or digoxin 0.125 mg daily. Will ask him to continue with metoprolol succinate 150 mg b.i.d. and torsemide 40 mg daily. He should have a basic metabolic panel in about a week to follow up on his potassium level to make sure that he does not need potassium supplementation. In addition, a digoxin level in about a week would be appropriate as well. I will ask my office to schedule him to see one of our physician assistants in the clinic in 7-10 days and to schedule an appointment with me my next available opportunity. The patient states that he has an appointment on Wednesday to follow up with the [facility]idency Clinic and has a scheduled followup with Endocrinology in about one month as well. I appreciate the opportunity of assisting with this patient's care.
[2016-09-14 13:08] LABS: Thyroid Stim Immunoglobulin 433 % (0-139)
--- NOTE | 2016-09-14 18:10 | NUR ---
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 Message left requesting call back.
--- NOTE | 2016-09-14 18:26 | NUR ---
CHF Discharge follow up call back: Patient returned call. Denied feeling any chest pain, shortness of breath or swelling to his lower legs. He went to a follow up appointment today at the [facility]idency [facility]. He has all his needed medications. He will purchase a scale to monitor his weights tomorrow. Reviewed CHF teaching. No further questions. No orders for outpatient CHF Clinic.
== END 2016-09-13 12:20 | disposition home or self-care (01) | DRG 292 ==
LOC: SED 11:25 → EDSEX 11:25 → PCC 13:21 → OSC 09-11 22:41
PROVIDERS: ADMIT Internal Medicine; ATTEND Internal Medicine
PROC: 0W9G3ZX Drainage of Peritoneal Cavity, Percutaneous Approach, Diagnostic (ICD-10-PCS; principal; 2016-09-06)
DX: I50.21 Acute systolic (congestive) heart failure (principal); E87.2 Acidosis; N17.9 Acute kidney failure, unspecified; I48.1 Persistent atrial fibrillation; N39.0 Urinary tract infection, site not specified; E66.9 Obesity, unspecified; Z68.34 Body mass index [BMI] 34.0-34.9, adult; K70.31 Alcoholic cirrhosis of liver with ascites; E21.3 Hyperparathyroidism, unspecified; I71.4 Abdominal aortic aneurysm, without rupture; L27.0 Generalized skin eruption due to drugs and medicaments taken internally; T38.2X5A Adverse effect of antithyroid drugs, initial encounter; R74.0 Nonspecific elevation of levels of transaminase and lactic acid dehydrogenase [LDH]